=== PATIENT | female | born 1950 | race Caucasian/White ===

== ENCOUNTER 2020-02-20 07:55 | Outpatient (CLI) | payer MEDICARE, OTHER, SELFPAY ==
--- NOTE | ~2020-02-20 | DEXA_ITS ---
Bone Density Report Name: Glenda Miller Age: 69 Sex: Female Ethnicity: White Date of : 1950 Indication: osteopenia; monitoring treatment; height loss; postmenopausal Referring Provider: DAVE CORDOBA Study: Bone densitometry was performed. Exam Date: February 20, 2020 Accession number: [id number] Bone Density: Region BMD T-score Z-score Classification AP Spine (L1, L2, L3) 0.895 -1.1 0.8 Osteopenia Femoral Neck (Left) 0.625 -2.0 -0.3 Osteopenia Total Hip (Left) 0.785 -1.3 0.1 Osteopenia Total Hip Bilateral Avg 0.764 -1.5 -0.1 Osteopenia Femoral Neck (Right) 0.564 -2.6 -0.9 Osteoporosis Total Hip (Right) 0.742 -1.6 -0.2 Osteopenia World Health Organization criteria for BMD impression classify patients as: Normal (T-score at or above -1.0), Osteopenia (T-score between -1.0 and -2.5), or Osteoporosis (T-score at or below -2.5). 10-year Fracture Risk: FRAX not reported because: Some T-score for Spine Total or Hip Total or Femoral Neck at or below -2.5 Treated for osteoporosis Previous Exams: Region Exam Age BMD T-score BMD Change BMD Change Date g/cm2 vs Baseline vs Previous AP Spine(L1, L2, L3) 02/20/2020 69 0.895 -1.1 -0.056(-5.9%)# -0.006(-0.6%) 10/13/2017 66 0.901 -1.1 -0.050(-5.3%)# -0.008(-0.9%) 08/20/2015 64 0.909 -1.0 -0.042(-4.4%)# 0.015(1.6%)# 08/16/2013 62 0.894 -1.1 -0.057(-6.0%)# 0.006(0.6%)# 03/22/2011 60 0.889 -1.2 -0.062(-6.6%)* -0.062(-6.6%)* 01/30/2009 58 0.951 -0.6 Total Hip(Left) 02/20/2020 69 0.785 -1.3 -0.021(-2.6%)# -0.001(-0.1%) 10/13/2017 66 0.785 -1.3 -0.020(-2.5%)# 0.007(0.8%) 08/20/2015 64 0.779 -1.3 -0.027(-3.3%)# -0.024(-3.0%)# 08/16/2013 62 0.803 -1.1 -0.003(-0.3%)# 0.031(4.0%)# 03/22/2011 60 0.772 -1.4 -0.034(-4.2%)* -0.034(-4.2%)* 01/30/2009 58 0.806 -1.1 Total Hip(Right) 02/20/2020 69 0.742 -1.6 -0.034(-4.3%)# -0.019(-2.5%) 10/13/2017 66 0.761 -1.5 -0.014(-1.8%)# 0.031(4.3%)* 08/20/2015 64 0.730 -1.7 -0.046(-5.9%)# -0.047(-6.1%)# 08/16/2013 62 0.777 -1.4 0.001(0.2%)# 0.035(4.7%)# 03/22/2011 60 0.742 -1.6 -0.034(-4.3%)* -0.034(-4.3%)* 01/30/2009 58 0.776 -1.4 *Denotes significance at 95% confidence level, LSC for AP Spine = 0.022 g/cm2, LSC for Total Hip = 0.027 g/cm2 Clinical Information Provided by Patient: Is being treated for osteoporosis Has used the following medications: Fosamax (i.e. alendronate), Reclast (i.e. zoledronate), Vitamin D,
--- NOTE | ~2020-02-20 | MM_ITS ---
EXAMINATION: MM screening [facility] BI w ricky HISTORY: Screening mammogram TECHNIQUE: Craniocaudal and mediolateral oblique 3-D tomosynthesis images were obtained and synthetic 2-D images were generated. CAD analysis was submitted and interpreted. COMPARISON: Comparison to multiple prior studies sequentially, with oldest reviewed study dated 07/24. BREAST PARENCHYMAL COMPOSITION: The breasts are heterogeneously dense, which may obscure small masses . FINDINGS: There is no evidence of suspicious mass, calcification, or architectural distortion to sugg est malignancy in either breast. There has been no suspicious interval change. IMPRESSION: 1. No mammographic evidence of malignancy. 2. Recommend routine screening mammography in one year. 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
== END 2020-02-20 07:56 | disposition home or self-care (01) ==
LOC: ANHIMG 08:01
PROVIDERS: PCP Internal Medicine; Visit Provider Obstetrics & Gynecology Gynecology
DX: Z12.31 Encounter for screening mammogram for malignant neoplasm of breast (principal); Z78.0 Asymptomatic menopausal state; M85.88 Other specified disorders of bone density and structure, other site; M85.852 Other specified disorders of bone density and structure, left thigh; M85.851 Other specified disorders of bone density and structure, right thigh; M81.0 Age-related osteoporosis without current pathological fracture
CPT/HCPCS: 77063; 77067; 77080

== ENCOUNTER 2021-02-25 08:01 | Outpatient (CLI) | payer MEDICARE, OTHER, SELFPAY ==
--- NOTE | ~2021-02-25 | MM_ITS ---
EXAMINATION: MM screening [facility] BI w ricky HISTORY: Screening mammogram TECHNIQUE: Craniocaudal and mediolateral oblique 3-D tomosynthesis images were obtained and synthetic 2-D images were generated. CAD analysis was submitted and interpreted. COMPARISON: 02/20/2020, 05/08/2019, 11/10/2018, 10/25/2018, 10/13/2017 BREAST PARENCHYMAL COMPOSITION: The breasts are heterogeneously dense, which may obscure small masses . FINDINGS: There is no evidence of suspicious mass, calcification, or architectural distortion to sugg est malignancy in either breast. There has been no suspicious interval change. IMPRESSION: 1. No mammographic evidence of malignancy. 2. Recommend routine screening mammography in one year. 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
== END 2021-02-25 08:02 | disposition home or self-care (01) ==
LOC: ANHIMG 08:03
PROVIDERS: PCP Internal Medicine; Visit Provider Obstetrics & Gynecology Gynecology
DX: Z12.31 Encounter for screening mammogram for malignant neoplasm of breast (principal)
CPT/HCPCS: 77063; 77067

== ENCOUNTER 2022-04-22 12:52 | Outpatient (CLI) | payer MEDICARE, SELFPAY | END 2022-04-22 12:53 | disposition home or self-care (01) | LOC: ANHAUDIO 12:55 | PROVIDERS: PCP Internal Medicine; Visit Provider Otolaryngology | DX: H90.3 Sensorineural hearing loss, bilateral (principal) | CPT/HCPCS: 92557; 92567 ==

== ENCOUNTER 2022-06-05 12:30 | Emergency (ER) | payer MEDICARE, SELFPAY ==
--- NOTE | 2022-06-05 12:38 | ED.URI ---
HPI - URI/Sore Throat General Chief Complaint: Upper Respiratory Infection Stated Complaint: sore throat Time Seen by Provider: 06/05/22 12:38 Source: patient and RN notes reviewed History of Present Illness HPI Narrative: Patient is a 71-year-old female who presents the urgent care with complaints of a sore throat that started today and other upper respiratory symptoms of been ongoing for approximately 1 week. Patient has been taking Zyrtec and Sudafed [id number] for symptom relief. Denies of any fevers, nausea, vomiting or fatigue. Patient denies any ill exposures. Patient states that she wants to make sure she does not have COVID or strep before she goes to a democrat this afternoon. Patient does have a history of chronic allergies and states that her symptoms are worse after walking her dog. No other acute complaints. No acute distress noted. Patient aware of the plan of care. Some parts of this dictation were generated by voice recognition software and may contain typographical and/or grammatical inaccuracies. Related Data Home Medications Medication Instructions Recorded Confirmed bimatoprost 0.01 % eye drops 1 drp EACH EYE 03/30/22 03/30/22 (Lumigan) cetirizine 10 mg capsule (All Day 10 mg PO DAILY PRN 03/30/22 03/30/22 Allergy (cetirizine)) escitalopram oxalate 10 mg tablet 10 mg PO 03/30/22 03/30/22 levothyroxine 100 mcg tablet 100 mcg PO 03/30/22 03/30/22 (Synthroid) lisinopril 10 mg tablet 10 mg PO 03/30/22 03/30/22 mirabegron 25 mg tablet,extended ea PO 03/30/22 03/30/22 release 24 hr (Myrbetriq) pravastatin 40 mg tablet 40 mg PO 03/30/22 03/30/22 Allergies Allergy/AdvReac Type Severity Reaction Status Date / Time lincomycin Allergy Intermediate PASSED OUT Verified 03/30/22 13:32 Review of Systems Review of Systems: CONSTITUTIONAL: Denies fever, chills, or sweats. EYES: Denies visual changes, redness, or discharge. ENT: Reports of mild postnasal drainage and sore throat CARDIOVASCULAR: Denies chest pain, palpitations, or edema. RESPIRATORY: Reports a slight cough without dyspnea GASTROINTESTINAL: Denies abdominal pain, nausea, vomiting, or diarrhea. GENITOURINARY: Denies dysuria or hematuria. SKIN: Denies rash or itching. MUSCULOSKELETAL: Denies back pain, joint pain, or myalgia. NEUROLOGIC: Denies headache, numbness, or weakness. All other systems reviewed are negative, except as documented in HPI. [facility] Family History Family History (Updated 03/30/22 @ 13:36 by JOYCE Hidalgo) Father Hypertension Parkinsons Mother Cerebrovascular accident Social History Social History (Updated 03/30/22 @ 13:31 by JOYCE Hidalgo) Smoking status: Never smoker Alcohol intake: current Comments At the time of my signature, I reviewed and agree with the nursing past medical, surgical, social, and family history. There is no relevant family history pertinent to the patient complaint. Exam Narrative: GENERAL: This is a well-nourished, well-developed patient, in no apparent distress. HEAD: normocephalic, atraumatic. EYES: PERRL. Sclera clear/white. Vision is grossly intact. EARS: External ears normal, auditory canals clear and without drainage, TMs normal without perforation. Hearing grossly intact. NOSE: External nose normal with no obvious nasal discharge, nares without redness, clear rhinorrhea. THROAT: Mucous membranes moist, posterior pharynx clear. Moderate postnasal drainage NECK: Neck supple, non-tender without lymphadenopathy, masses or thyromegaly. CARDIOVASCULAR: Regular rate and rhythm without murmurs, gallops, or rubs. RESPIRATORY: Clear to auscultation. Breath sounds equal bilaterally. No wheezes, rales, or rhonchi. SKIN: warm, intact with no suspicious lesions or rash, good texture and turgor. NEURO: awake, alert, and oriented to person, place and time. There were no obvious focal neurologic abnormalities. EXTREMITIES: No clubbing, cyanosis, or edema. Course Cour
[2022-06-05 12:45] VITALS: BP 180/82; PULSE 72; RESP 16; TEMP 37; O2SAT 99
== END 2022-06-05 13:08 | disposition home or self-care (01) ==
PROVIDERS: Emergency Provider Nurse Practitioner Family; PCP Internal Medicine
DX: J30.2 Other seasonal allergic rhinitis (principal); Z20.822 Contact with and (suspected) exposure to COVID-19; E78.00 Pure hypercholesterolemia, unspecified; I10 Essential (primary) hypertension; E03.9 Hypothyroidism, unspecified
CPT/HCPCS: 87081; 87426; 87880; 99213; C9803; G0463

== ENCOUNTER 2022-06-29 17:05 | Outpatient (CLI) | payer MEDICARE, SELFPAY ==
--- NOTE | ~2022-06-29 | MM_ITS ---
EXAMINATION: MM screening jimbo BI w ricky HISTORY: Screening mammogram TECHNIQUE: Craniocaudal and mediolateral oblique 3-D tomosynthesis images were obtained and synthetic 2-D images were generated. CAD analysis was submitted and interpreted. COMPARISON: 02/25/2021, 02/20/2020, bilateral screening mammogram examinations BREAST PARENCHYMAL COMPOSITION: The breasts are heterogeneously dense, which may obscure small masses . FINDINGS: There is no evidence of suspicious mass, calcification, or architectural distortion to sugg est malignancy in either breast. There has been no suspicious interval change. IMPRESSION: 1. No mammographic evidence of malignancy. 2. Recommend routine screening mammography in one year. 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
--- NOTE | ~2022-06-29 | DEXA_ITS ---
Bone Density Report Name: DILAN KING Age: 71 Sex: Female Ethnicity: White Date of : 1950 Indication: postmenopausal; screening for osteoporosis; height loss; Referring Provider: DAVE CORDOBA Study: Bone densitometry was performed. Exam Date: June 29, 2022 Accession number: [id number] Bone Density: Region BMD T-score Z-score Classification AP Spine(L1, L2, L3) 1.015 0.0 2.1 Normal Femoral Neck (Left) 0.669 -1.6 0.2 Osteopenia Total Hip (Left) 0.800 -1.2 0.4 Osteopenia Femoral Neck (Right) 0.587 -2.4 -0.5 Osteopenia Total Hip (Right) 0.720 -1.8 -0.3 Osteopenia Total Hip Mean 0.760 -1.5 0.1 Osteopenia World Health Organization criteria for BMD impression classify patients as: Normal (T-score at or above -1.0), Osteopenia (T-score between -1.0 and -2.5), or Osteoporosis (T-score at or below -2.5). 10-year Fracture Risk: FRAX not reported because: Treated for osteoporosis Clinical Information Provided by Patient: Is being treated for osteoporosis Has used the following medications: Prolia (i.e. denosumab), Vitamin D, Calcium Patient maximum height was 63.75 Menopause Age: 47 Drinks caffeinated beverages Onset of menses at age 14 Number of children 0 Impression: The patient has low bone mass, based on the Right Femoral Neck T-score. Discussion: It is important to ask patients whether they are taking their medications and to encourage continued and appropriate compliance with their osteoporosis therapies to reduce fracture risk. It is also important to review their risk factors and encourage appropriate calcium and vitamin D intakes, exercise, fall prevention and other lifestyle measures. Follow-Up: Consider a repeat BMD and Vertebral Fracture Assessment (VFA) exam in 2 years or sooner if medically necessary, to reassess this patient's status. Reported by: KARLEY on 06/29/2022 5:39:00 PM. Reviewed, dictated and finalized at location AKen DUGAN
== END 2022-06-29 17:06 | disposition home or self-care (01) ==
PROVIDERS: PCP Internal Medicine; Visit Provider Obstetrics & Gynecology Gynecology
DX: Z12.31 Encounter for screening mammogram for malignant neoplasm of breast (principal); M81.0 Age-related osteoporosis without current pathological fracture; Z78.0 Asymptomatic menopausal state; M85.89 Other specified disorders of bone density and structure, multiple sites
CPT/HCPCS: 77063; 77067; 77080

== ENCOUNTER 2022-09-27 18:14 | Emergency (ER) | payer MEDICARE, SELFPAY ==
--- NOTE | ~2022-09-27 | XR_ITS ---
EXAMINATION: XR foot RT min 3V DATE: 09/27/2022 18:44 INDICATION: Right foot slammed in a door one week prior with pain at the third-fifth metacarpophalang eal joints and fifth toe TECHNIQUE: Dorsoplantar, two oblique and lateral views of the right foot were obtained. COMPARISON: None. FINDINGS: 35 degrees hallux valgus with mild to moderate osteoarthritis at the first metatarsophalangeal joint. The second toe crosses over the dorsum of the great toe with hyperextension and mild medial angulati on at the second metacarpophalangeal joint. 1.5 mm dorsal displacement and mild dorsal angulation of an extra articular fracture at the distal neck of the fifth proximal phalanx. No other fractures iden tified. Additional mild osteoarthritis at the second metatarsophalangeal and a few tarsometatarsal an d interphalangeal joints. IMPRESSION: 1. Mild dorsal displacement and angulation of an extra articular fracture at the neck of the right fi fth proximal phalanx. Reviewed, dictated and finalized at location A. [employer]KING IMPRESSION: 1. Mild dorsal displacement and angulation of an extra articular fracture at th e neck of the right fifth proximal phalanx.
[2022-09-27 18:25] VITALS: BP 188/77; PULSE 70; RESP 16; TEMP 37.1; O2SAT 100
--- NOTE | 2022-09-27 18:36 | ED.URI ---
HPI - URI/Sore Throat General Chief Complaint: Upper Respiratory Infection Stated Complaint: sore throat, cough, fatigue Time Seen by Provider: 09/27/22 18:16 Source: patient Mode of arrival: ambulatory Limitations: no limitations History of Present Illness HPI Narrative: Ms. Miller is a 71-year-old female patient presenting to the clinic today with complaints sore throat, cough, fatigue, and right 5th toe pain. She reports her sore throat, cough, and fatigue started 2-3 days ago. States she is having a lot of sinus drainage. Denies any known fever or chills. Has a nonproductive cough. States that she render toe up against a door last Tuesday and is still having some toe pain with some bruising across her foot. Would like to have an x-ray done today in the clinic to check to see if this is broken. Patient is requesting a strep and COVID test in the clinic today as well. MD elicited complaint: sore throat and nasal congestion Related Data Home Medications Medication Instructions Recorded Confirmed bimatoprost 0.01 % eye drops 1 drp EACH EYE DIRECTED 03/30/22 09/27/22 (Lumigan) cetirizine 10 mg capsule (All Day 10 mg PO DAILY 03/30/22 09/27/22 Allergy (cetirizine)) escitalopram oxalate 10 mg tablet 10 mg PO DAILY 03/30/22 09/27/22 levothyroxine 100 mcg tablet 100 mcg PO DAILY 03/30/22 09/27/22 (Synthroid) lisinopril 10 mg tablet 10 mg PO DAILY 03/30/22 09/27/22 mirabegron 25 mg tablet,extended 25 mg PO DAILY 03/30/22 09/27/22 release 24 hr (Myrbetriq) pravastatin 40 mg tablet 40 mg PO DAILY 03/30/22 09/27/22 dorzolamide 2 % eye drops 1 drp ophthalmic (eye) DIRECTED 09/27/22 09/27/22 zolpidem 5 mg tablet 5 mg PO DIRECTED 09/27/22 09/27/22 Allergies Allergy/AdvReac Type Severity Reaction Status Date / Time lincomycin Allergy Intermediate PASSED OUT Verified 09/27/22 18:20 Review of Systems Review of Systems: Pertinent positives per HPI. Patient denies any fever, chills, rash, headache, visual changes, dizziness, cough, shortness of breath, chest pain, palpitations, nausea, vomiting, diarrhea, constipation, abdominal pain, or any urinary issues. [facility] Family History Family History Father Hypertension Parkinsons Mother Cerebrovascular accident Social History Social History Smoking status: Never smoker Alcohol intake: current Occupation/Education: retired Comments At the time of my signature, I reviewed and agree with the nursing past medical, surgical, social, and family history. There is no relevant family history pertinent to the patient complaint. Exam Narrative: General: Well-developed, well nourished, in no apparent distress Head: Normocephalic, atraumatic Eyes: Pupils equally round and reactive to light bilaterally, EOM intact, sclera and conjunctive clear, no discharge, lids normal Ears: TMs intact and clear, ear canals clear, no drainage, grossly hearing normal. Nose: Nares patent, clear nasal discharge, no inflammation, no sinus tenderness. Mouth: Oral pharynx without lesions or masses, good dentition, MMM. Postnasal drip Neck: Supple, trachea midline, no enlargement of anterior or posterior cervical nodes, no thyroid masses or goiter palpable. Cardio: Regular rate and rhythm, s1 and s2 normal, no murmur appreciated. Resp: Clear to auscultation bilaterally, no rhonchi, rales, wheezing or rubs Musculoskeletal: No deformity, old bruising noted to the right proximal 3rd, 4th, and 5th toes, tenderness to palpation over the dorsal foot and 5th proximal toe, grossly normal range of motion, muscle strength strong and equal, peripheral pulse strong, no edema, no cyanosis, normal gait and station Course Course Emergency Course: Portions of this record may have been created with voice recognition software. Level of Care: Express Care Visit Vital Signs
== END 2022-09-27 19:12 | disposition home or self-care (01) ==
PROVIDERS: Emergency Provider Nurse Practitioner Family; PCP Internal Medicine
DX: J06.9 Acute upper respiratory infection, unspecified (principal); J02.9 Acute pharyngitis, unspecified; S92.511A Displaced fracture of proximal phalanx of right lesser toe(s), initial encounter for closed fracture; W22.8XXA Striking against or struck by other objects, initial encounter; Z20.822 Contact with and (suspected) exposure to COVID-19; E78.00 Pure hypercholesterolemia, unspecified; I10 Essential (primary) hypertension; E03.9 Hypothyroidism, unspecified
CPT/HCPCS: 73630; 87081; 87426; 87880; 99213; 99214; C9803; G0463

== ENCOUNTER 2023-10-21 13:37 | Outpatient (CLI) | payer MEDICARE, SELFPAY ==
--- NOTE | ~2023-10-21 | MM_ITS ---
EXAMINATION: MM screening jimbo BI w ricky HISTORY: Screening TECHNIQUE: Craniocaudal and mediolateral oblique 3-D tomosynthesis images were obtained and synthetic 2-D images were generated. CAD analysis was submitted and interpreted. COMPARISON: Comparison to multiple prior studies sequentially, with oldest reviewed study dated 01/2019. BREAST PARENCHYMAL COMPOSITION: There are scattered areas of fibroglandular density. FINDINGS: There is no evidence of suspicious mass, calcification, or architectural distortion to sugg est malignancy in either breast. There has been no suspicious interval change. IMPRESSION: 1. No mammographic evidence of malignancy. 2. Recommend routine screening mammography in one year. 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
== END 2023-10-21 13:38 | disposition home or self-care (01) ==
LOC: ANHIMG 13:41
PROVIDERS: PCP Internal Medicine; Visit Provider Nurse Practitioner
DX: Z12.31 Encounter for screening mammogram for malignant neoplasm of breast (principal)
CPT/HCPCS: 77063; 77067

== ENCOUNTER 2024-03-15 17:34 | Emergency (ER) | payer MEDICARE, SELFPAY ==
[2024-03-15 18:06] VITALS: BP 191/94; PULSE 82; RESP 16; TEMP 36.4; O2SAT 97
[2024-03-15] MEDS: TETANUS,DIPHTHERIA,AC PERTUSSIS ADULT (0.5 ML) BOOSTRIX IM (18:53)
--- NOTE | 2024-03-15 19:06 | ED.BURNSMOKE ---
HPI - Burn/Smoke Inhalation General Chief complaint: Extremity Problem,Nontraumatic Stated complaint: Left Hand Pain Time Seen by Provider: 03/15/24 18:37 Source: patient and RN notes reviewed Mode of arrival: ambulatory Limitations: no limitations History of Present Illness HPI Narrative: Patient presents today complaining of [place]ura to the pads of her left 3rd and 4th fingers that were sustained approximately 2 hours prior to exam on a light bulb on stove anthony when she was changing them. She rinsed under cool water for 5 minutes then applied ice. States symptoms slightly improved. Unsure of the date of her last tetanus vaccine. Related Data Home Medications Medication Instructions Recorded Confirmed bimatoprost 0.01 % eye drops 1 drp EACH EYE DIRECTED 03/30/22 03/15/24 (Lumigan) escitalopram oxalate 10 mg tablet 10 mg PO DAILY 03/30/22 03/15/24 pravastatin 40 mg tablet 40 mg PO DAILY 03/30/22 03/15/24 dorzolamide 2 % eye drops 1 drp ophthalmic (eye) DIRECTED 09/27/22 03/15/24 zolpidem 5 mg tablet 5 mg PO DIRECTED 09/27/22 03/15/24 dextromethorphan-guaifenesin 30 1 tablet PO Q12H 09/29/22 03/15/24 mg-600 mg tablet extended [id number] hr (Mucinex DM) buspirone 5 mg tablet 5 mg PO DAILY 12/20/23 03/15/24 levothyroxine 112 mcg tablet 112 mcg PO DAILY 12/20/23 03/15/24 (Synthroid) lisinopril 20 mg tablet 20 mg PO DAILY 12/20/23 03/15/24 loratadine 10 mg tablet (Claritin) 10 mg PO DAILY 12/20/23 03/15/24 mirabegron 50 mg tablet,extended 50 mg PO DAILY 12/20/23 03/15/24 release 24 hr (Myrbetriq) pantoprazole 20 mg tablet,delayed 20 mg PO QAM 12/20/23 03/15/24 release Allergies Allergy/AdvReac Type Severity Reaction Status Date / Time lincomycin Allergy Intermediate PASSED OUT Verified 03/15/24 18:01 Review of Systems Review of Systems: CONSTITUTIONAL: Denies body aches, fever, chills, or sweats. EYES: Denies visual changes, redness, or discharge. ENT: Denies rhinorrhea, congestion, sore throat, or otalgia. CARDIOVASCULAR: Denies chest pain, palpitations, or edema. RESPIRATORY: Denies cough or dyspnea. GASTROINTESTINAL: Denies abdominal pain, nausea, vomiting, or diarrhea. GENITOURINARY: Denies dysuria or hematuria. SKIN: + for MUSCULOSKELETAL: Denies back pain, joint pain, or myalgia. NEUROLOGIC: Denies headache, numbness, tingling, or weakness. PSYCH: Denies depression or anxiety. 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 Please see nursing chart for further information. There is no relevant family history pertinent to the presenting complaint Exam Narrative: GENERAL: Well-appearing, well-nourished, and in no acute distress. HEAD: Normocephalic, atraumatic. EYES: EOMI. No redness or drainage. Conjunctivae normal. ENT: Mucous membranes pink and moist. NECK: Normal AROM. CHEST: No respiratory distress. EXTREMITIES: Left 3rd and 4th fingers have some sligh
== END 2024-03-15 19:12 | disposition home or self-care (01) ==
PROVIDERS: Emergency Provider Nurse Practitioner; PCP Internal Medicine
DX: T23.232A Burn of second degree of multiple left fingers (nail), not including thumb, initial encounter (principal); X19.XXXA Contact with other heat and hot substances, initial encounter; Z23 Encounter for immunization; M81.0 Age-related osteoporosis without current pathological fracture
CPT/HCPCS: 90471; 90715; 99212; G0463

== ENCOUNTER 2024-04-15 16:00 | Emergency (ER) | payer MEDICARE, SELFPAY ==
--- NOTE | 2024-04-15 16:10 | ED.GENADULT ---
HPI - General Adult General Chief complaint: Upper Respiratory Infection Stated complaint: sore throat Time Seen by Provider: 04/15/24 16:20 Source: patient Mode of arrival: ambulatory Limitations: no limitations History of Present Illness HPI narrative: 73-year-old female patient presents to the [facility] with complaints of sinus symptoms and sore throat for the last 3-4 days. Patient states she has had congestion, drainage, runny nose and a sore throat. Patient states her sore throat has been off and on. Denies any fevers, body aches or chills. Patient states she has been taking normal [id number] Claritin for her symptoms. Related Data Home Medications Medication Instructions Recorded Confirmed bimatoprost 0.01 % eye drops 1 drp EACH EYE DIRECTED 03/30/22 04/15/24 (Lumigan) escitalopram oxalate 10 mg tablet 10 mg PO DAILY 03/30/22 04/15/24 pravastatin 40 mg tablet 40 mg PO DAILY 03/30/22 04/15/24 dorzolamide 2 % eye drops 1 drp ophthalmic (eye) DIRECTED 09/27/22 04/15/24 zolpidem 5 mg tablet 5 mg PO DIRECTED 09/27/22 04/15/24 buspirone 5 mg tablet 5 mg PO DAILY 12/20/23 04/15/24 levothyroxine 112 mcg tablet 112 mcg PO DAILY 12/20/23 04/15/24 (Synthroid) lisinopril 20 mg tablet 20 mg PO DAILY 12/20/23 04/15/24 loratadine 10 mg tablet (Claritin) 10 mg PO DAILY 12/20/23 04/15/24 mirabegron 50 mg tablet,extended 50 mg PO DAILY 12/20/23 04/15/24 release 24 hr (Myrbetriq) pantoprazole 20 mg tablet,delayed 20 mg PO QAM 12/20/23 04/15/24 release Allergies Allergy/AdvReac Type Severity Reaction Status Date / Time lincomycin Allergy Intermediate PASSED OUT Verified 04/15/24 16:13 Review of Systems Review of Systems: CONSTITUTIONAL: Denies fever, chills, or sweats. EYES: Denies visual changes, redness, or discharge. ENT: Positive rhinorrhea, congestion, sore throat, denies otalgia. CARDIOVASCULAR: Denies chest pain, palpitations, or edema. RESPIRATORY: Denies cough or dyspnea. GASTROINTESTINAL: Denies abdominal pain, nausea, vomiting, or diarrhea. GENITOURINARY: Denies dysuria or hematuria. SKIN: Denies rash or itching. MUSCULOSKELETAL: Denies back pain, joint pain, or myalgia. NEUROLOGIC: Denies headache, numbness, or weakness. PSYCHIATRIC: Denies anxiety or depression. 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 There is no relevant family history pertinent to the presenting complaint. Exam Narrative: GENERAL: Well-appearing, well-nourished, and in no acute distress. HEAD: Normocephalic, atraumatic. EYES: PERRLA and EOMI. ENT: Nares with erythema edema noted bilaterally, no rhinorrhea or epistaxis. Mucous membranes moist. posterior pharynx with no erythema, tonsillar enlargement, exudates or lesions. bilateral TMs are clear no erythema or foreign bodies the canal NECK: Supple. No lymphadenopathy CHEST: Clear to auscultation. No respiratory distress. HEART: Regular rate and rhythm. No murmur heard. Normal pe
[2024-04-15 16:17] VITALS: BP 189/83; PULSE 69; RESP 16; TEMP 36.9; O2SAT 99
[2024-04-15 16:45] LABS: EDSTREPNEGPOS1 Negative
== END 2024-04-15 17:02 | disposition home or self-care (01) ==
PROVIDERS: Emergency Provider Nurse Practitioner Family; PCP Internal Medicine
DX: J06.9 Acute upper respiratory infection, unspecified (principal); M81.0 Age-related osteoporosis without current pathological fracture; F41.9 Anxiety disorder, unspecified; E07.9 Disorder of thyroid, unspecified
CPT/HCPCS: 87081; 87426; 87880; 99213; G0463

== ENCOUNTER 2024-09-25 18:45 | Emergency (ER) | payer MEDICARE, SELFPAY ==
[2024-09-25 18:54] VITALS: BP 162/69; PULSE 73; RESP 16; TEMP 37.2; O2SAT 98
--- NOTE | 2024-09-25 19:03 | ED.URI ---
HPI - URI/Sore Throat General Chief Complaint: Upper Respiratory Infection Stated Complaint: BODY ACHES/COUGH/SORE THROAT/HEADACHE Time Seen by Provider: 09/25/24 18:55 Source: patient Mode of arrival: ambulatory Limitations: no limitations History of Present Illness HPI Narrative: Glenda is a 73-year-old female patient presenting to the clinic today with complaints of body aches, cough, sore throat, and headache x1 day. She reports her symptoms started last night. No fever or chills. Does take care of immunocompromised . MD elicited complaint: cough, sore throat, nasal congestion and other (Body aches, headache) Related Data Home Medications ?Medication ?Instructions ?Recorded ?Confirmed ?Last Taken ?Type bimatoprost 0.01 % eye drops 1 drp EACH EYE DIRECTED 03/30/22 09/25/24 Unknown History (Lumigan) escitalopram oxalate 10 mg tablet 10 mg PO DAILY 03/30/22 09/25/24 Unknown History pravastatin 40 mg tablet 40 mg PO DAILY 03/30/22 09/25/24 Unknown History dorzolamide 2 % eye drops 1 drp ophthalmic (eye) DIRECTED 09/27/22 09/25/24 Unknown History zolpidem 5 mg tablet 5 mg PO DIRECTED 09/27/22 09/25/24 Unknown History buspirone 5 mg tablet 5 mg PO DAILY 12/20/23 09/25/24 Unknown History levothyroxine 112 mcg tablet 112 mcg PO DAILY 12/20/23 09/25/24 Unknown History (Synthroid) lisinopril 20 mg tablet 20 mg PO DAILY 12/20/23 09/25/24 Unknown History loratadine 10 mg tablet (Claritin) 10 mg PO DAILY 12/20/23 09/25/24 Unknown History mirabegron 50 mg tablet,extended 50 mg PO DAILY 12/20/23 09/25/24 Unknown History release 24 hr (Myrbetriq) pantoprazole 20 mg tablet,delayed 20 mg PO QAM 12/20/23 09/25/24 Unknown History release Allergies Allergy/AdvReac Type Severity Reaction Status Date / Time lincomycin Allergy Intermediate PASSED OUT Verified 09/25/24 18:51 Review of Systems Review of Systems: Pertinent positives per HPI. Patient denies any fever, chills, rash, headache, visual changes, dizziness, cough, shortness of breath, chest pain, palpitations, nausea, vomiting, diarrhea, constipation, abdominal pain, or any urinary issues. 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 There is no relevant family history pertinent to the patient complaint. Exam Narrative: General: Well-developed, well nourished, in no apparent distress Head: Normocephalic, atraumatic Eyes: Pupils equally round and reactive to light bilaterally, EOM intact, sclera and conjunctive clear, no discharge, lids normal Ears: TMs intact and congested, ear canals clear, no drainage, grossly hearing normal. Nose: Nares patent, clear nasal discharge, no inflammation, no sinus tenderness. Mouth: Oral pharynx red without lesions or masses, good dentition, MMM. Postnasal drip Neck: Supple, trachea midline, no enlargement of anterior or posterior cervical nodes, no thyroid masses or goiter palpable. Cardio: Regular rate and rhythm, s1 and s2 normal, no murmur appreciated. Resp: Clear to auscultation bilaterally, no rhonchi, rales, wheezing or rubs Course Course Emergency Course: Portions of this record may have been created with voice recognition software. Level of Care: Express Care Visit Vital Signs Vital signs: Vital Signs Temperature 37.2 C 09/25/24 18:54 Pulse Rate 73 09/25/24 18:54 Respiratory Rate 16 09/25/24 18:54 Blood Pressure 162/69 H 09/25/24 18:54 Pulse Oximetry 98 09/25/24 18:54 Oxygen Delivery Room Air 09/25/24 18:54 Temperature 37.2 C 09/25/24 18:54 Pulse Rate 73 09/25/24 18:54 Respiratory Rate 16 09/25/24 18:54 Blood Pressure 162/69 H 09/25/24 18:54 Pulse Oximetry 98 09/25/24 18:54 Oxygen Delivery Room Air 09/25/24 18:54 Vital signs reviewed MDM - URI/Sore Throat MDM Narrative Medical decision making narrative: At the time of visit patient is resting comfortably on the exam table. Patient appears to be nontoxic. Labs: COVID, influenza, and strep test were all performed. All testing was negative except for the COVID test. COVID testing was positive. We will send strep for culture. Plan: Patient has COVID-19. Supportive measures were discussed with the patient and they voiced understanding discharge instructions and agrees to treatment plan. Return precautions reviewed Differential Diagnosis Differential diagnosis: Likely upper respiratory infection, otitis media, sinusitis, viral infection, bronchitis, influenza, pharyngitis and other (COVID) Lab Data Labs: Lab Results 09/25/24 Range/Units 19:09 POC Influenza A Ag Negative (Negative) POC Influenza B Ag Negative (Negative) POC SARS CoV-2 Ag Positive (Negative) POC Grp A Strep Screen Negative (Negative) Discharge Plan Discharge Clinical Impression: COVID-19 Patient Disposition: Home, Self-Care Condition: Stable Instructions: Antibiotic Form, How to Recover from COVID-19 at Home (ED) Additional Instructions: COVID testing was positive in the clinic today. Influenza testing and strep testing were negative. We will send strep for culture if this comes back positive we will contact you in place you on antibiotics at that time May contact your doctor tomorrow to discuss use of Paxlovid for Covid. May take Coricidin HBP for cold/flu symptoms May take Mucinex as needed for the cough Increase fluids and stay well hydrated Tylenol/motrin for pain/fever Flonase and OTC antihistamines as directed Vicks vapor rub to open sinuses Sinus rinses for congestion Cepacol spray, cough drops, throat lozenges, warm tea with honey/lemon, gargle salt water to soothe throat BRAT diet for diarrhea Clear liquids x 24 hours then advance as tolerated for nausea/vomiting Go to the ED if you develop a worsening in your condition- high fever not controlled by Tylenol or Motrin, dehydration, weakness, lethargy, shortness of breath, or chest pain. Follow up with your PCP in 3-5 days if symptoms persist. Patient Language: Kinyarwanda Prescriptions: No Action zolpidem 5 mg tablet 5 mg PO DIRECTED dorzolamide 2 % drops 1 drp ophthalmic (eye) DIRECTED buspirone 5 mg Tablet 5 mg PO DAILY lisinopril 20 mg Tablet 20 mg PO DAILY pantoprazole 20 mg Tablet,Delayed Release (Dr/Ec) 20 mg PO QAM loratadine [Claritin] 10 mg Tablet 10 mg PO DAILY levothyroxine [Synthroid] 112 mcg tablet 112 mcg PO DAILY mirabegron [Myrbetriq] 50 mg Tablet Extended Release 24 Hr 50 mg PO DAILY escitalopram oxalate 10 mg tablet 10 mg PO DAILY Lumigan 0.01 % drops 1 drp EACH EYE DIRECTED pravastatin 40 mg tablet 40 mg PO DAILY Follow-up/Referrals: Anthony,Zack Lewis MD [Primary Care Provider] - Time of Disposition: 19:20 Quality NIHSS Nursing Documentation ED NIHSS nursing documentation: reviewed/agree
[2024-09-25 19:11] LABS: EDCOVIDSCREEN Positive (Negative); EDINFLUASCREEN Negative (Negative); EDINFLUBSCREEN Negative (Negative); EDSTREPNEGPOS1 Negative (Negative)
== END 2024-09-25 19:24 | disposition home or self-care (01) ==
PROVIDERS: Emergency Provider Nurse Practitioner Family; PCP Internal Medicine
DX: U07.1 COVID-19 (principal); M81.0 Age-related osteoporosis without current pathological fracture
CPT/HCPCS: 87081; 87426; 87804; 87880; 99213; G0463

== ENCOUNTER 2024-11-14 10:55 | Outpatient (CLI) | payer MEDICARE, SELFPAY ==
--- NOTE | ~2024-11-14 | DEXA_ITS ---
Bone Density Report Name: DILAN KING Age: 73 Sex: Female Ethnicity: White Date of : 1950 Indication: osteopenia; monitoring treatment; height loss; Referring Provider: IAN, CHARU Study: Bone densitometry was performed. Exam Date: November 14, 2024 Accession number: [id number] Bone Density: Region BMD T-score Z-score Classification AP Spine(L1, L2, L3) 0.968 -0.5 1.8 Normal Femoral Neck (Left) 0.655 -1.7 0.2 Osteopenia Total Hip (Left) 0.794 -1.2 0.5 Osteopenia Femoral Neck (Right) 0.603 -2.2 -0.3 Osteopenia Total Hip (Right) 0.741 -1.6 0.0 Osteopenia Total Hip Mean 0.768 -1.4 0.3 Osteopenia World Health Organization criteria for BMD impression classify patients as: Normal (T-score at or above -1.0), Osteopenia (T-score between -1.0 and -2.5), or Osteoporosis (T-score at or below -2.5). 10-year Fracture Risk: FRAX not reported because: Treated for osteoporosis Previous Exams: Region Exam Age BMD T-score BMD Change BMD Change Date g/cm2 vs Baseline vs Previous AP Spine (L1-L3) 11/14/2024 73 0.968 -0.5 0.074 (8.2%)# -0.047 (-4.7%) 06/29/2022 71 1.015 0.0 0.121 (13.5%)# 0.120 (13.4%)* 02/20/2020 69 0.895 -1.1 0.001 (0.1%)# -0.006 (-0.6%) 10/13/2017 66 0.901 -1.1 0.007 (0.8%)# -0.008 (-0.9%) 08/20/2015 64 0.909 -1.0 0.015 (1.6%)# 0.015 (1.6%)# 08/16/2013 62 0.894 -1.1 Total Hip(Left) 11/14/2024 73 0.794 -1.2 -0.009 (-1.1%) -0.006 (-0.7%) 06/29/2022 71 0.800 -1.2 -0.003 (-0.3%) 0.016 (2.0%) 02/20/2020 69 0.785 -1.3 -0.018 (-2.3%) -0.001 (-0.1%) 10/13/2017 66 0.785 -1.3 -0.018 (-2.2%) 0.007 (0.8%) 08/20/2015 64 0.779 -1.3 -0.024 (-3.0%) -0.024 (-3.0%) 08/16/2013 62 0.803 -1.1 Total Hip(Right) 11/14/2024 73 0.741 -1.6 -0.035 (-4.6%) 0.021 (3.0%) 06/29/2022 71 0.720 -1.8 -0.057 (-7.3%) -0.022 (-3.0%) 02/20/2020 69 0.742 -1.6 -0.035 (-4.5%) -0.019 (-2.5%) 10/13/2017 66 0.761 -1.5 -0.016 (-2.0%) 0.031 (4.3%)* 08/20/2015 64 0.730 -1.7 -0.047 (-6.1%) -0.047 (-6.1%) 08/16/2013 62 0.777 -1.4 *Denotes significance at 95% confidence level, LSC for AP Spine = 0.022 g/cm2, LSC for Total Hip = 0.027 g/cm2 # Denotes dissimilar scan types or analysis methods Clinical Information Provided by Patient: Is being treated for osteoporosis Has used the following medications: Fosamax (i.e. alendronate), Reclast (i.e. zoledronate), Prolia (i.e. denosumab), Vitamin D, Calcium Patient maximum height was 64.0 Menopause Age: 47 No regular weight bearing exercise Drinks caffeinated beverages Onset of menses at age 15 Number of children 0 Impression: The patient has low bone mass, based on the Right Femoral Neck T-score. The BMD for the AP Spine (L1-L3) decreased, changing by -4.7% since the last DXA exam. Discussion: SIGNIFICANT BONE LOSS OBSERVED. Adherence to therapy (including calcium and vitamin D intake) should be assessed. If compliance is not a factor, review management and exclusion of secondary causes of bone loss. It is important to ask patients whether they are taking their medications and to encourage continued and appropriate compliance with their osteoporosis therapies to reduce fracture risk. It is also important to review their risk factors and encourage appropriate calcium and vitamin D intakes, exercise, fall prevention and other lifestyle measures. Follow-Up: Consider a repeat BMD and Vertebral Fracture Assessment (VFA) exam in 2 years or sooner if medically necessary, to reassess this patient's status. Reported by: GAYE on 11/14/2024 11:32:00 AM. Reviewed, dictated and finalized at location AKen DUGAN
--- OUTSIDE RECORDS SUMMARY | 2024-11-14 12:36 | XMS_ITS | Data Portability ---
Author Organization [facility] [employer], Main Office Address [address] [place] [address] Assessment No assessment recorded. Plan of Treatment Reminders Order Date Submit Date Provider Last Modified By Organization Details Last Modified Time Details Appointments None recorded. Lab vitamin D, 25-hydroxy, total, serum 2023 024 [email or web address] [facility], [address], [address], [place], [address], 4 10:06:46 CBC w/ auto diff 2023 024 [id number] [facility], [address], [place], [address], 4 10:06:46 CMP, serum or plasma 2023 024 [id number] [facility], [address], [address], [place], [address], 4 10:06:46 lipid panel, serum 2023 024 [email or web address] [facility], [address], [place], [address], 4 10:06:46 T4, free, serum 2023 024 [email or web address] [facility] [address], [place], [address], 4 10:06:46 TSH, serum or plasma 2023 024 [email or web address] [facility] [address] [address], [place], [address], 4 10:06:46 vitamin D, 25-hydroxy, total, serum 2022 023 [id number] [facility], [address], [address], [place], [address], 3 17:44:06 CMP, serum or plasma 2022 023 [id number] [facility], [address], [address], [place], [address], 3 17:44:05 CMP, serum or plasma 2022 023 [id number] [facility], [address], [address], [place], [address], 3 17:44:05 CBC w/ auto diff 2022 023 [id number] [facility], [address], [address], [place], [address], 3 17:44:05 TSH, serum or plasma 2022 023 [id number] [facility], [address], [address], [place], [address], 3 17:44:05 T4, free, serum 2022 023 [facility], [address], [address], [place], [address], 3 17:44:06 Referral None recorded. Procedures None recorded. Surgeries None recorded. Imaging None recorded. Medication Orders pantoprazol e 40 mg tablet,zuri yed release 2023 024 [facility] #[id number], [address] [place], [address], 15:40:20 Patient TargetsNo targets recorded. Patient Instructions Encounter Date Encounter Id Patient Instructions Last Modified By Organization Details Last Modified Time 02/25/2023 [id number] Follow-up hypertension -hyperlipidemia-hyp othyroidism -osteoporosis all clinically stable. Check blood work in the form of CBC, CMP, lipid, thyroid and vitamin-D level. Continue on current Rx follow-up in six months [email or web address] Not available 02/25/2023 15:28:41 08/26/2023 [id number] Follow-up hypertension -hyperlipidemia-hyp othyroidism -overactive bladder -osteoporosis -obesity all clinically stable. Has had recent blood work which looked fine. Will continue on current Rx follow-up in six months.. Standard immunizations of RSV, COVID, influenza and shingles as recommended. Portions of the record may have been created with voice recognition software. Occasional wrong-word or sxcvv-[id number] substitutions may have occurred due to the inherent limitations of voice recognition software. Read the chart carefully and recognize, using context, where substitutions have occurred. Not available 08/26/2023 14:49:09 10/25/2023 [id number] dementia rating scale-2* [email or web address] Not available 10/25/2023 15:40:52 alcohol misuse* [email or web address] Not available 10/25/2023 15:40:52 depression screening* [email or web address] Not available 10/25/2023 15:40:52 multi-dimensiona l health assessment questionnaire* [email or web address] Not available 10/25/2023 15:40:52 [facility]ized [facility] Plan and Screening Recommendations Advance Directives - Do you have one? No Advance Directives - Do we have your advance directive on file in your health record? Primary Prevention/Interven tion (prevents or decreases the chance of common diseases from occurring) Smoking Risk: Non Smoker Alcohol Misuse Screening: Negative Weight: Appropriate Overwei ght continue your current weight loss efforts try to lose 5% of your body weight try to lose 10% of your body weight Physical activity: Need more exercise/physical activity Nutrition: Good Average Fall Risk (screened today): Low Vaccines Pneumococcal: Ordered Recommended today Recommended today, but you have declined No further needed Influenza: Your next one in the fall of this year Chronic Disease Risks Stroke: Low Risk Intermediate Risk I have no recommendations Act kyle diagnosis, Continue current treatment plan Heart Attack: Low risk Intermediate Risk I have no recommendations Act kyle diagnosis, Continue current treatment plan Clogging of the Arteries: Low risk Intermediate Risk I have no recommendations Act kyle diagnosis, Continue current treatment plan Diabetes: Low Risk I have no recommendations Secondary Prevention/Interven tion (detects treatable diseases before they may cause symptoms, disability, or ) Breast Cancer Screening with mammogram: Cervical/Uterine/Ov rosalinda Cancer Screening: No screening necessary Osteoporosis Screening: Date Screening Last Performed: Colon Cancer Screening: Colonoscopy Date Screening Last Performed: __2016___ Eye Disease Screening: Dementia Risk: Low I have no recommendations Depression Screening: Negative [email or web address] Not available 10/25/2023 15:15:55 Medicare wellnes s evaluation risk assessment. Follow-up hypertension, hyperlipidemia and sciatica or piriformis syndrome both all clinically stable. Will obtain radiographic studies of the lumbar and sacral spine along with the hip in pelvis continue on current Rx set up physical therapy. Check blood work consisting of CBC, CMP, lipid vitamin-D level. Continue on current Rx follow-up in six months Portions of the record may have been created with voice recognition software. Occasional wrong-word or [id number]-y-[id number] substitutions may have occurred due to the inherent limitations of voice recognition software. Read the chart carefully and recognize, using context, where substitutions have occurred. x-rays of lumbar sacral spine X-rays of the right hip and pelvis Set up with physical therapy for lower back pain the right leg Keep Appt: Tue 01:30 PM Jorge [email or web address] Not available 10/25/2023 15:40:26 12/16/2023 [id number] Atypical chest p ain probably noncardiac and likely GERD. Follow-up hypertension, hyperlipidemia and hypothyroidism all clinically stable. Will place on some pantoprazole 40 mg once daily recheck back in several weeks. Continue on current Rx otherwise instructed let us know if any recurrent attacks and may require further evaluation from a cardiac standpoint if it persists Keep Appointment: Tue 01:30 PM Jorge Portions of the record may have been created with voice recognition software. Occasional wrong-word or iehxj-l-[id number] substitutions may have occurred due to the inherent limitations of voice recognition software. Read the chart carefully and recognize, using context, where substitutions have occurred. [email or web address] Not available 12/16/2023 15:40:05 03/01/2024 [id number] Follow-up hypertension, hyperlipidemia, hypothyroidism, osteoporosis and obesity class one all clinically stable. Will continue on current Rx. Does not need any blood work performed at this time. Will continue on current medications and follow-up in six months. Next Appointment: 6 Months Approximate Date: 08/28/2024 Portions of the record may have been created with voice recognition software. Occasional wrong-word or icrxk-y-asnt substitutions may have occurred due to the inherent limitations of voice recognition software. Read the chart carefully and recognize, using context, where substitutions have occurred. [email or web address] Not available 03/01/2024 15:42:43 Reason for Referral None Reported. Results Created Date Observation Date Name Description Value Unit Range Abnormal Flag Note LastModifiedBy Organization Detail LastModifiedTime 06/14/2006/15/2023 SPECI MEN INTEG RITY COMPR OMISE D specimen integrity compromised Whole blood , unspu n or parti ally spun gel barri er tube was recei wilbert more than [address] . A false eleva tion of K, Phos and LD as well as a false decre ase in gluco se may occur due to prolo nged conta ct with red cells . Not Available [facility] [address] [place], [address], 06/15/2023 09:49:27 06/14/2006/15/2023 SPECI MEN INTEG RITY COMPR OMISE D copy(ies) sent to: TERESA HERNÁNDEZ JR [address] [phone] Not Available [facility] [address] [place], [address], 06/15/2023 09:49:27 06/14/2006/15/2023 COMPR EHENS KYLE METAB OLIC PANEL glucose 92 mg/dL 65-99 normal Fasti ng refer ence inter natalia Not Available [facility] [address] [place], [address], 06/15/2023 09:49:28 06/14/20 23 06/15/2023 COMPR EHENS KYLE METAB OLIC PANEL urea nitrogen (BUN) 18 mg/dL 7-25 normal Not Available [address], [address], 06/15/2023 09:49:28 06/14/2006/15/2023 COMPR EHENS KYLE METAB OLIC PANEL creatinine 0.74 mg/dL 0.60-1 .00 normal Not Available [address], [address], 06/15/2023 09:49:28 06/14/2006/15/2023 COMPR EHENS KYLE METAB OLIC PANEL eGFR 86 mL/mi n/1.7 3m2 > or = 60 normal Not Available [address], [address], 06/15/2023 09:49:28 06/14/2006/15/2023 COMPR EHENS KYLE METAB OLIC PANEL BUN/creatini ne ratio SEE NOTE: (calc ) 6-22 Not Repor bari: BUN and Creat inine are withi n refer ence range . Not Available [address], [address], 06/15/2023 09:49:28 06/14/2006/15/2023 COMPR EHENS KYLE METAB OLIC PANEL sodium 136 mmol/ L 135-14 6 normal Not Available [address] [place], [address], 06/15/2023 09:49:28 06/14/2006/15/2023 COMPR EHENS KLYE METAB OLIC PANEL potassium 4.2 mmol/ L 3.5-5. 3 normal Not Available [address], [address], 06/15/2023 09:49:28 06/14/2006/15/2023 COMPR EHENS KYLE METAB OLIC PANEL chloride 100 mmol/ L 98-110 normal Not Available [address], [address], 06/15/2023 09:49:28 06/14/2006/15/2023 COMPR EHENS KYLE METAB OLIC PANEL carbon dioxide 30 mmol/ L 20-32 normal Not Available [address], [address], 06/15/2023 09:49:28 06/14/2006/15/2023 COMPR EHENS KYLE METAB OLIC PANEL calcium 8.8 mg/dL 8.6-10 .4 normal Not Available [address], [address], 06/15/2023 09:49:28 06/14/2006/15/2023 COMPR EHENS KYLE METAB OLIC PANEL protein, total 6.1 g/dL 6.1-8. 1 normal Not Available [address], [address], 06/15/2023 09:49:28 06/14/20 23 06/15/2023 COMPR EHENS KYLE METAB OLIC PANEL albumin 3.9 g/dL 3.6-5. 1 normal Not Available [address], [address], 06/15/2023 09:49:28 06/14/2006/15/2023 COMPR EHENS KYLE METAB OLIC PANEL globulin 2.2 g/dL_ (calc ) 1.9-3. 7 normal Not Available [address], [address], 06/15/2023 09:49:28 06/14/20 23 06/15/2023 COMPR EHENS KYLE METAB OLIC PANEL albumin/glob ulin ratio 1.8 (calc ) 1.0-2. 5 normal Not Available [address], [address], 06/15/2023 09:49:28 06/14/2006/15/2023 COMPR EHENS KYLE METAB OLIC PANEL bilirubin, total 0.5 mg/dL 0.2-1. 2 normal Not Available [address], [address], 06/15/2023 09:49:28 06/14/2006/15/2023 COMPR EHENS KYLE METAB OLIC PANEL alkaline phosphatase 58 U/L 37-153 normal Not Available [facility] [address], [address], 06/15/2023 09:49:28 06/14/2006/15/2023 COMPR EHENS KYLE METAB OLIC PANEL AST 18 U/L 10-35 normal Not Available [address], [address], 06/15/2023 09:49:28 06/14/2006/15/2023 COMPR EHENS KYLE METAB OLIC PANEL ALT 16 U/L 6-29 normal Not Available [address], [address], 06/15/2023 09:49:28 06/14/2006/15/2023 COMPR EHENS KYLE METAB OLIC PANEL copy(ies) sent to: GIL MINER, TERESA MULLINS JR [address] [phone] Not Available [address], [address], 06/15/2023 09:49:28 06/14/2006/15/2023 CBC (INCL UDES DIFF/ PLT) white blood cell count 5.8 thous and/u L 3.8-10 .8 normal Not Available [address], [address], 06/15/2023 09:49:29 06/14/2006/15/2023 CBC (INCL UDES DIFF/ PLT) red blood cell count 4.25 sam on/uL 3.80-5 .10 normal Not Available [address], [address], 06/15/2023 09:49:29 06/14/2006/15/2023 CBC (INCL UDES DIFF/ PLT) hemoglobin 13.2 g/dL 11.7-1 5.5 normal Not Available [address], [address], 06/15/2023 09:49:29 06/14/2006/15/2023 CBC (INCL UDES DIFF/ PLT) hematocrit 39.2 % 35.0-4 5.0 normal Not Available [address], [address], 06/15/2023 09:49:29 06/14/2006/15/2023 CBC (INCL UDES DIFF/ PLT) MCV 92.2 fL 80.0-1 00.0 normal Not Available [address], [address], 06/15/2023 09:49:29 06/14/2006/15/2023 CBC (INCL UDES DIFF/ PLT) MCH 31.1 pg 27.0-3 3.0 normal Not Available [address], [address], 06/15/2023 09:49:29 06/14/2006/15/2023 CBC (INCL UDES DIFF/ PLT) MCHC 33.7 g/dL 32.0-3 6.0 normal Not Available [address], [address], 06/15/2023 09:49:29 06/14/2006/15/2023 CBC (INCL UDES DIFF/ PLT) RDW 12.4 % 11.0-1 5.0 normal Not Available [address], [address], 06/15/2023 09:49:29 06/14/2006/15/2023 CBC (INCL UDES DIFF/ PLT) platelet count 275 thous and/u L 140-40 0 normal Not Available [address], [address], 06/15/2023 09:49:29 06/14/2006/15/2023 CBC (INCL UDES DIFF/ PLT) MPV 11.3 fL 7.5-12 .5 normal Not Available [address], [address], 06/15/2023 09:49:29 06/14/2006/15/2023 CBC (INCL UDES DIFF/ PLT) absolute neutrophils 3608 cells /uL 1500-7 800 normal Not Available [address], [address], 06/15/2023 09:49:29 06/14/2006/15/2023 CBC (INCL UDES DIFF/ PLT) absolute lymphocytes 1288 cells /uL 850-39 00 normal Not Available [address], [address], 06/15/2023 09:49:29 06/14/2006/15/2023 CBC (INCL UDES DIFF/ PLT) absolute monocytes 389 cells /uL 200-95 0 normal Not Available [address], [address], 06/15/2023 09:49:29 06/14/2006/15/2023 CBC (INCL UDES DIFF/ PLT) absolute eosinophils 429 cells /uL 15-500 normal Not Available [address], [address], 06/15/2023 09:49:29 06/14/2006/15/2023 CBC (INCL UDES DIFF/ PLT) absolute basophils 87 cells /uL 0-200 normal Not Available [address], [address], 06/15/2023 09:49:29 06/14/2006/15/2023 CBC (INCL UDES DIFF/ PLT) neutrophils 62.2 % normal Not Available [address], [address], 06/15/2023 09:49:29 06/14/2006/15/2023 CBC (INCL UDES DIFF/ PLT) lymphocytes 22.2 % normal Not Available [address], [address], 06/15/2023 09:49:29 06/14/2006/15/2023 CBC (INCL UDES DIFF/ PLT) monocytes 6.7 % normal Not Available [address], [address], 06/15/2023 09:49:29 06/14/2006/15/2023 CBC (INCL UDES DIFF/ PLT) eosinophils 7.4 % normal Not Available [address], [address], 06/15/2023 09:49:29 06/14/2006/15/2023 CBC (INCL UDES DIFF/ PLT) basophils 1.5 % normal Not Available [address], [address], 06/15/2023 09:49:29 06/14/2006/15/2023 CBC (INCL UDES DIFF/ PLT) copy(ies) sent to: TERESA HERNÁNDEZ JR [address] [phone] Not Available [address], [place], [address], 06/15/2023 09:49:29 06/14/2006/15/2023 T4, FREE T4, free 1.1 NG/dL 0.8-1. 8 normal Not Available [address] [place], [address], 06/15/2023 09:49:31 06/14/2006/15/2023 T4, FREE copy(ies) sent to: TERESA HERNÁNDEZ JR [address] [place] [address] Not Available [address], [address], 06/15/2023 09:49:31 06/14/2006/15/2023 TSH TSH 3.45 mIU/L 0.40-4 .50 normal Not Available [address] [place], [address], 06/15/2023 09:49:32 06/14/2006/15/2023 TSH copy(ies) sent to: TERESA HERNÁNDEZ JR [address] [place] [address] Not Available [address], [address], 06/15/2023 09:49:32 06/14/2006/15/2023 VITAM IN D,25- OH,TO KEYLA,I A vitamin D,25-oh,tota l,ia 42 NG/mL 30-100 normal Vitam in D Statu s 25-OH Vitam in D: Defic iency : <20 ng/mL Insuf ficie ncy: 20 - 29 ng/mL Optim al: > or = 30 ng/mL For 25-OH Vitam in D testi ng on patie nts on D2-leon pplem entat ion and patie nts for whom quant itati on of D2 and D3 fract ions is requi red, the [employer] Assur eD(TM ) 25-OH VIT D, (D2,D 3), LC/MS /MS is recom erlin d: order code 69367 (ori ents >2yrs ). See Note 1 Note 1 For addit ional infor clif fam refer to http: //stuart Florian gnost ics.c om/fa q/FAQ 199 (This link is being provi ded for infor kip garrett/ francisco bolaños purpo ses only. ) Not Available [address], [address], 06/15/2023 09:49:33 06/14/20 23 06/15/2023 VITAM IN D,25- OH,TO Alexx RAMIRES A copy(ies) sent to: GIL MINER, TERESA MULLINS JR [address] [phone] Not Available [address], [address], 06/15/2023 09:49:33 11/07/19 24 11/11/2023 LIPID PANEL , STAND OFELIA cholesterol, total 155 mg/dL <200 normal Not Available [address], [address], 11/11/2023 01:45:20 11/07/19 24 11/11/2023 LIPID PANEL , STAND OFELIA HDL cholesterol 58 mg/dL > or = 50 normal Not Available [address], [address], 11/11/2023 01:45:20 11/07/19 24 11/11/2023 LIPID PANEL , STAND OFELIA triglyceride s 53 mg/dL <150 normal Not Available [address], [address], 11/11/2023 01:45:20 11/07/19 24 11/11/2023 LIPID PANEL , STAND OFELIA LDL-choleste rol 84 mg/dL _(marion c) normal Refer ence range : <100 Justin able range <100 mg/dL for prima ry preve ntion ; <70 mg/dL for patie nts with CHD or diabe tic patie nts with > or = 2 CHD risk facto rs. LDL-C is now calcu lated using the Yomaira n-Hop kins calcu aki n, which is a valid ated novel metho d harpali yashira rima r accur acy than the Fried rohit equat ion in the estim ation of LDL-C . Yomaira herrera SS et al. OLVIN. 2013; 310(1 9): 2061- 2068 (http ://ed ucati on.Qu The Point. com/f aq/FA Q164) Not Available [facility] [address] [place], [address], 11/11/2023 01:45:20 11/07/19 24 11/11/2023 LIPID PANEL , STAND OFELIA chol/HDLC ratio 2.7 (calc ) <5.0 normal Not Available [facility] [address] [address], [place], [address], 11/11/2023 01:45:20 11/07/19 24 11/11/2023 LIPID PANEL , STAND OFELIA non HDL cholesterol 97 mg/dL _(marion c) <130 normal For patie nts with diabe lei plus 1 major ASCVD risk facto r, treat ing to a non-H DL-C goal of <100 mg/dL (LDL- C of <70 mg/dL ) is consi dered a thera peuti c optio n. Not Available [facility] [address] [place], [address], 11/11/2023 01:45:20 11/07/1911/11/2023 COMPR EHENS KYLE METAB OLIC PANEL glucose 105 mg/dL 65-99 high Fasti ng refer ence inter natalia For someo ne witho ut known diabe lei, a gluco se value betwe en 100 and 125 mg/dL is consi stent with predi abete s and shoul d be confi rmed with a follo w-up test. Not Available [address], [address], 11/11/2023 01:45:21 11/07/19 24 11/11/2023 COMPR EHENS KYLE METAB OLIC PANEL urea nitrogen (BUN) 19 mg/dL 7-25 normal Not Available [address], [address], 11/11/2023 01:45:21 11/07/19 24 11/11/2023 COMPR EHENS KYLE METAB OLIC PANEL creatinine 0.75 mg/dL 0.60-1 .00 normal Not Available [address], [address], 11/11/2023 01:45:21 11/07/19 24 11/11/2023 COMPR EHENS KYLE METAB OLIC PANEL eGFR 85 mL/mi n/1.7 3m2 > or = 60 normal Not Available [address], [address], 11/11/2023 01:45:21 11/07/19 24 11/11/2023 COMPR EHENS KYLE METAB OLIC PANEL BUN/creatini ne ratio SEE NOTE: (calc ) 6-22 Not Repor bari: BUN and Creat inine are withi n refer ence range . Not Available [address], [address], 11/11/2023 01:45:21 11/07/19 24 11/11/2023 COMPR EHENS KYLE METAB OLIC PANEL sodium 136 mmol/ L 135-14 6 normal Not Available [address], [address], 11/11/2023 01:45:21 11/07/19 24 11/11/2023 COMPR EHENS KYLE METAB OLIC PANEL potassium 4.0 mmol/ L 3.5-5. 3 normal Not Available [facility] [address] [place], [address], 11/11/2023 01:45:21 11/07/19 24 11/11/2023 COMPR EHENS KYLE METAB OLIC PANEL chloride 99 mmol/ L 98-110 normal Not Available [address], [address], 11/11/2023 01:45:21 11/07/19 24 11/11/2023 COMPR EHENS KYLE METAB OLIC PANEL carbon dioxide 26 mmol/ L 20-32 normal Not Available [address], [address], 11/11/2023 01:45:21 11/07/19 24 11/11/2023 COMPR EHENS KYLE METAB OLIC PANEL calcium 8.9 mg/dL 8.6-10 .4 normal Not Available [address], [address], 11/11/2023 01:45:21 11/07/19 24 11/11/2023 COMPR EHENS KYLE METAB OLIC PANEL protein, total 6.4 g/dL 6.1-8. 1 normal Not Available [address], [address], 11/11/2023 01:45:21 11/07/19 24 11/11/2023 COMPR EHENS KYLE METAB OLIC PANEL albumin 4.1 g/dL 3.6-5. 1 normal Not Available [address] [place], [address], 11/11/2023 01:45:21 11/07/19 24 11/11/2023 COMPR EHENS KYLE METAB OLIC PANEL globulin 2.3 g/dL_ (calc ) 1.9-3. 7 normal Not Available [address], [address], 11/11/2023 01:45:21 11/07/19 24 11/11/2023 COMPR EHENS KYLE METAB OLIC PANEL albumin/glob ulin ratio 1.8 (calc ) 1.0-2. 5 normal Not Available [address], [address], 11/11/2023 01:45:21 11/07/19 24 11/11/2023 COMPR EHENS KYLE METAB OLIC PANEL bilirubin, total 0.4 mg/dL 0.2-1. 2 normal Not Available [address], [address], 11/11/2023 01:45:21 11/07/19 24 11/11/2023 COMPR EHENS KYLE METAB OLIC PANEL alkaline phosphatase 53 U/L 37-153 normal Not Available [address], [address], 11/11/2023 01:45:21 11/07/19 24 11/11/2023 COMPR EHENS KYLE METAB OLIC PANEL AST 21 U/L 10-35 normal Not Available [address], [address], 11/11/2023 01:45:21 11/07/19 24 11/11/2023 COMPR EHENS KYLE METAB OLIC PANEL ALT 16 U/L 6-29 normal Verif ied by betty arce maegan sis. Not Available [address], [address], 11/11/2023 01:45:21 11/07/19 24 11/11/2023 CBC (INCL UDES DIFF/ PLT) white blood cell count 6.4 thous and/u L 3.8-10 .8 normal Not Available [address], [address], 11/11/2023 01:45:22 11/07/19 24 11/11/2023 CBC (INCL UDES DIFF/ PLT) red blood cell count 4.33 sam on/uL 3.80-5 .10 normal Not Available [address], [address], 11/11/2023 01:45:22 11/07/19 24 11/11/2023 CBC (INCL UDES DIFF/ PLT) hemoglobin 13.3 g/dL 11.7-1 5.5 normal Not Available [address], [address], 11/11/2023 01:45:22 11/07/19 24 11/11/2023 CBC (INCL UDES DIFF/ PLT) hematocrit 38.7 % 35.0-4 5.0 normal Not Available [address], [address], 11/11/2023 01:45:22 11/07/19 24 11/11/2023 CBC (INCL UDES DIFF/ PLT) MCV 89.4 fL 80.0-1 00.0 normal Not Available [address], [address], 11/11/2023 01:45:22 11/07/19 24 11/11/2023 CBC (INCL UDES DIFF/ PLT) MCH 30.7 pg 27.0-3 3.0 normal Not Available [address], [address], 11/11/2023 01:45:22 11/07/19 24 11/11/2023 CBC (INCL UDES DIFF/ PLT) MCHC 34.4 g/dL 32.0-3 6.0 normal Not Available [address], [address], 11/11/2023 01:45:22 11/07/19 24 11/11/2023 CBC (INCL UDES DIFF/ PLT) RDW 12.3 % 11.0-1 5.0 normal Not Available [address] [place], [address], 11/11/2023 01:45:22 11/07/19 24 11/11/2023 CBC (INCL UDES DIFF/ PLT) platelet count 253 thous and/u L 140-40 0 normal Not Available [address], [address], 11/11/2023 01:45:22 11/07/19 24 11/11/2023 CBC (INCL UDES DIFF/ PLT) MPV 11.4 fL 7.5-12 .5 normal Not Available [address], [address], 11/11/2023 01:45:22 11/07/19 24 11/11/2023 CBC (INCL UDES DIFF/ PLT) absolute neutrophils 3827 cells /uL 1500-7 800 normal Not Available [address], [address], 11/11/2023 01:45:22 11/07/19 24 11/11/2023 CBC (INCL UDES DIFF/ PLT) absolute lymphocytes 1434 cells /uL 850-39 00 normal Not Available [address], [address], 11/11/2023 01:45:22 11/07/19 24 11/11/2023 CBC (INCL UDES DIFF/ PLT) absolute monocytes 474 cells /uL 200-95 0 normal Not Available [address], [address], 11/11/2023 01:45:22 11/07/19 24 11/11/2023 CBC (INCL UDES DIFF/ PLT) absolute eosinophils 563 cells /uL 15-500 high Not Available [address], [address], 11/11/2023 01:45:22 11/07/19 24 11/11/2023 CBC (INCL UDES DIFF/ PLT) absolute basophils 102 cells /uL 0-200 normal Not Available [address], [address], 11/11/2023 01:45:22 11/07/19 24 11/11/2023 CBC (INCL UDES DIFF/ PLT) neutrophils 59.8 % normal Not Available [address], [address], 11/11/2023 01:45:22 11/07/19 24 11/11/2023 CBC (INCL UDES DIFF/ PLT) lymphocytes 22.4 % normal Not Available [address], [address], 11/11/2023 01:45:22 11/07/19 24 11/11/2023 CBC (INCL UDES DIFF/ PLT) monocytes 7.4 % normal Not Available [address], [address], 11/11/2023 01:45:22 11/07/19 24 11/11/2023 CBC (INCL UDES DIFF/ PLT) eosinophils 8.8 % normal Not Available [address], [address], 11/11/2023 01:45:22 11/07/19 24 11/11/2023 CBC (INCL UDES DIFF/ PLT) basophils 1.6 % normal Not Available [address], [address], 11/11/2023 01:45:22 11/07/19 24 11/11/2023 T4, FREE T4, free 1.2 NG/dL 0.8-1. 8 normal Not Available [address], [address], 11/11/2023 01:45:23 11/07/19 24 11/11/2023 TSH TSH 6.33 mIU/L 0.40-4 .50 high Not Available [facility] [address] [place], [address], 11/11/2023 01:45:23 11/07/19 24 11/11/2023 VITAM IN D,25- OH,TO KEYLA,I A vitamin D,25-oh,tota l,ia 35 NG/mL 30-100 normal Vitam in D Statu s 25-OH Vitam in D: Defic iency : <20 ng/mL Insuf ficie ncy: 20 - 29 ng/mL Optim al: > or = 30 ng/mL For 25-OH Vitam in D testi ng on patie nts on D2-leon pplem entat ion and patie nts for whom quant itati on of D2 and D3 fract ions is requi red, the Quest Assur eD(TM ) 25-OH VIT D, (D2,D 3), LC/MS /MS is recom erlin d: order code 14197 (ori ents >2yrs ). See Note 1 Note 1 For addit ional infor clif fam refer to http: //stuart Mello stDia gnost ics.c om/fa q/FAQ 199 (This link is being provi ded for infor kip garrett/ francisco bolaños purpo ses only. ) Not Available [facility] [address] , [place], [address], 11/11/2023 01:45:24 10/21/19 24 10/21/2023 MAMMO , scree doris, digit al, bilat eral No observ ation record ed. [email or web address], [place], [address], 10/21/2023 16:38:43 10/25/19 24 XR, lumbo sacra l spine , 4 or more view [facility] [address], [facility] [place] [address] Patien t Name: GLENDA MILLER Access ion #: [id number] Sex: F : 1950 3 Dictat ed By: Owen Jarvis Attend ing Physic dinesh: FRANCESCA CRUZ CE Orderi ng Physic dinesh: FRANCESCA CRUZ CE Exam Date: 2023 14:58 PM Exam Name: XR L SPINE 4V+ Admitt ing Diagno sis(es ): INDICA TION: pain COMPAR DIANN: None TECHNI QUE: 4 views of the lumbar spine were obtain ed. FINDIN GS: The lumbar verteb ral alignm ent is normal . The interv ertebr al disc spaces are well-m aintai mikhail. No signif icant facet arthro senia is noted. No acute fractu re, verteb ral compre ssion deform ity or aggres sive osseou s lesion s. The parave rtebra l soft tissue s are grossl y unrema rkable . IMPRES JAVAN: No acute fractu re. Electr onical ly Signed by: Owen Jarvis at 2023 15:40: 38 PM Page 1 [email or web address] [facility] (Imaging) [address] [place], [address], 10/25/2023 17:02:17 10/25/19 24 XR, hip, unila teral , 2 or 3 view [facility] [address] [place] [address] Patien t Name: GLENDA MILLER Access ion #: [id number] Sex: F : 1950 3 Dictat ed By: Owen Jarvis Attend ing Physic dinesh: FRANCESCA CRUZ CE Orderi ng Physic dinesh: FRANCESCA CRUZ CE Exam Date: 2023 14:58 PM Exam Name: XR HIP/PE LVIS RT 2-3V Admitt ing Diagno sis(es ): pelvis and right hip radiog raph [facility] INDICA TION: pain TECHNI QUE: 3 radiog raphic views of the pelvis and right hip were obtain ed. Compar diann: none FINDIN GS: There is no eviden ce of acute fractu re or disloc ation. The visual ized joint space is well mainta ined. The alignm ent is anatom ical. Soft tissue s are unrema rkable . IMPRES JAVAN: No acute fractu re or disloc ation. Electr onical ly Signed by: Owen Jarvis at 2023 15:44: 21 PM Page 1 [facility] ([facility]) [address] [place], [address], 10/25/2023 17:02:18 12/21/19 24 12/16/2023 elect rocar diogr am No observ ation record ed. [email or web address] Not Available 2023 16:19:29 12/21/19 24 elect rocar diogr am No observ ation record ed. [email or web address] Not Available 2023 16:19:29 Result Notes None recorded. Problems Name Problem SNOMED Code Status Onset Date Resolution Date Notes Provider Name and Address Organization Details Recorded Time Administra tion of pneumococc al vaccine Active 2021 Not Available [facility] 3 14:55:54 Folliculit is 04861149 Active Not Available [facility] 3 14:55:54 Hyperchole sterolemia 95333993 Active Not Available [facility] 3 14:55:54 Insomnia 012171016 Active 2016 Not Available [facility] 3 14:55:54 Glaucoma 48496539 Active 2020 Not Available [facility] 3 14:55:54 Deficiency anemias 421791997 Active Not Available [facility] 3 14:55:54 Adult health examinatio n Active 2021 Not Available [facility] 3 14:55:54 Screening for disorder Active 2021 Not Available [facility] 3 14:55:54 Porokerato sis 243510805 Active 2020 Not Available [facility] 3 14:55:54 Hypothyroi dism 74644622 Active Not Available [facility] 3 14:55:54 Seasonal allergy 816810170 Active 2020 Not Available [facility] 3 14:55:54 Essential hypertensi on 68651971 Active 2017 Not Available [facility] 3 14:55:54 Osteoporos is 21275748 Active 2019 Not Available [facility] 3 14:55:55 Chronic insomnia 778762255 Active 2021 Not Available [facility] 3 14:55:55 Overactive urinary bladder 453770214 Active 2020 Not Available [facility] 3 14:55:55 Fatigue 23313032 Active 2022 Kelsie álvarez, [place] - [facility] 3 16:57:52 Obese class I 0456382270788 07 Active 2023 Zack Cruz MD [address], [address], [place], [address] , [place] [facility] 4 14:45:20 Piriformis syndrome 014561406 Active 2023 Zack Cruz MD [address], [address], [place], [address] , [place] [facility] 4 15:39:29 Vitamin D deficiency 08729310 Active 2023 Zack Cruz MD [address], [address], [place], [address] , [place] - [facility] 4 15:39:48 Low back pain 616886899 Active 2023 Kelsie álvarez, [place] - [facility] 4 15:50:02 Pain in right hip joint 7676696267419 02 Active 2023 Kelsie álvarez, [place] - [facility] 4 15:41:41 Chest pain 02765197 Active 2023 Zack Cruz MD [address], [address], [place], [address] , [place] [facility] 4 15:34:35 Low back strain 882577204 Active 2023 Kecia Garg CMA null, [facility] 4 16:50:18 COVID-19 840171098 Active 2024 Zack Cruz MD [address] [facility], [facility] [address], [place], [address] , [facility] - [facility] 5 10:15:51 Cough 23987225 Active 2024 Kecia Garg CMA null, [facility] 5 16:36:22 Problem Notes None recorded. Procedures Surgical History Date Name Laterality Status Provider Name and Address Organization Details Recorded Time 10/25/19 24 Medicare Wellness CPT Code, subsequent completed Laura Mathur RN [facility] 10/25/2023 15:08:39 10/23/19 23 Medicare Wellness CPT Code, subsequent completed Laura Mathur RN [facility] 10/22/2022 15:07:35 02/20/20 20 Most Recent Bone Density completed Not Available [facility] 10/20/2022 14:53:12 01/27/20 17 Date of Last Colonoscopy completed Not Available [facility] 10/20/2022 14:53:12 Imaging Results Imaging Date Name Status LastModified by Organization Details LastModified Time 10/21/2023 MAMMO, screening, digital, bilateral completed [address] [place] [address], [address], 10/21/2023 16:38:43 10/25/2023 XR, lumbosacral spine, 4 or more view completed [address] (Imaging) [address] [place], [address], 10/25/2023 17:02:17 10/25/2023 XR, hip, unilateral, 2 or [address] view [address] (Imaging) [address] [place], [address], 10/25/2023 17:02:18 12/16/2023 electrocardiogram completed Informa tion not available 12/21/2023 16:19:29 12/21/2023 electrocardiogram completed [email or web address] Informa tion not available 12/21/2023 16:19:29 Procedure Notes None recorded. Medical Equipment None Reported. Allergies Allergen ID Allergen Name Allergen Category Reaction Reaction Severity Criticality Documentation Date Start Date Code Code System Note Provider Name and Address Organization Details Recorded Time 98775 [facility] medicatio n other Not available Not available 10/20/2022 23873 1 RxNorm FAINT ING Not Available [facility] 14:58:17 Medications Name Sig Start Date Stop Date Status Note LastModified by Organization Details LastModified Time amoxicill in 500 mg capsule Take 1 capsule 3 times a day by oral route for 10 days. 04/18 completed Not Available Not Available Not Available buspirone 5 mg tablet Take 1 tablet twice a day by oral route. 03/01 completed Not Available Not Available Not Available ammonium lactate 12 % lotion Apply 2 applicat ions every day by topical route with meals. 02/25 completed Not Available Not Available Not Available azithromy liliana 250 mg tablet TAKE 2 TABLETS (500 MG) BY ORAL ROUTE ONCE DAILY FOR 1 DAY THEN 1 TABLET (250 MG) BY ORAL ROUTE ONCE DAILY FOR 4 DAYS 10/20 completed Not Available Not Available Not Available pravastat in 40 mg tablet TAKE 1 TABLET BY MOUTH EVERY DAY 2024 active Not Available Not Available Not Avai lable benzonata te 200 mg capsule Take 1 capsule 3 times a day by oral route. 2024 active Not Available Not Available Not Avai lable Claritin 10 mg tablet Take 1 tablet every day by oral route. active Not Available Not Available No t Available Keflex 500 mg capsule Take 1 capsule 4 times a day by oral route. active Not Available Not Available No t Available lisinopri l 20 mg tablet Take 1 tablet(s ) every day by oral route. 2023 active Not Available Not Available Not Avai lable Synthroid 125 mcg tablet TAKE 1 TABLET(S ) EVERY DAY BY ORAL ROUTE. active Not Available Not Available No t Available Synthroid 100 mcg tablet TAKE 1 TABLET BY MOUTH EVERY DAY 10/24 completed Not Available Not Available Not Available Tessalon Perles 100 mg capsule Take 1 capsule 3 times a day by oral route. active Not Available Not Available No t Available baclofen 10 mg tablet Take 1 tablet 4 times a day by oral route. 2023 active Not Available Not Available Not Avai lable pantopraz ole 40 mg tablet,de layed release TAKE 1 TABLET BY MOUTH EVERY DAY 2023 active Not Available Not Available Not Avai lable halobetas ol propionat e 0.05 % topical ointment DIRECTED APPLY TWICE DAILY TO CRACKS ON FINGER TIPS 02/02 completed Not Available Not Available Not Available lisinopri l 10 mg tablet pt cxl this rx pt has been increase d to 20 mg and a new rx has been sent in already active Not Available Not Available No t Available buspirone 7.5 mg tablet Take 1 tablet twice a day by oral route. active Not Available Not Available No t Available lisinopri l 5 mg tablet TAKE 1 TABLET BY MOUTH EVERY DAY 12/20 completed increase d to 10 mg QD Not Available Not Available Not Available zolpidem 5 mg tablet TAKE 1 TABLET BY MOUTH EVERYDAY AT BEDTIME 2023 active Not Available Not Available Not Avai lable Levaquin 500 mg tablet Take 1 tablet every 24 hours by oral route. 05/17 completed Not Available Not Available Not Available Synthroid 112 mcg tablet TAKE 1 TABLET BY MOUTH EVERY DAY 2024 active Not Available Not Available Not Avai lable ergocalci ferol (vitamin D2) 1,250 mcg (50,000 unit) capsule TAKE 1 CAPSULE BY MOUTH TWICE WEEKLY 10/24 completed Not Available Not Available Not Available zolpidem 10 mg tablet TAKE 1 TABLET BY MOUTH NIGHTLY AT BEDTIME 02/25 completed Not Available Not Available Not Available cefdinir 300 mg capsule Take 1 capsule every 12 hours by oral route. 04/18 completed Not Available Not Available Not Available dorzolami de 2 % eye drops INSTILL 1 DROP INTO BOTH EYES TWICE A DAY active Not Available Not Available No t Available Bactrim DS 800 mg-160 mg tablet Take 1 tablet every 12 hours by oral route for 5 days. 10/27 completed Not Available Not Available Not Available escitalop darien 10 mg tablet TAKE 1&1/2 TABLET BY MOUTH EVERY DAY 02/25 completed Not Available Not Available Not Available escitalop darien 20 mg tablet TAKE 1 TABLET BY MOUTH EVERY DAY active Not Available Not Available No t Available Reclast 5 mg/100 mL intraveno us piggyback once yearly 2013 active Not Available Not Available Not Avai lable Prolia 60 mg/mL subcutane ous syringe Inject 1 mL by subcutan eous route. 2019 active Not Available Not Available Not Avai lable Lumigan 0.01 % eye drops INSTILL 1 DROP INTO BOTH EYES EVERY NIGHT DIRECTED active Not Available Not Available No t Available Myrbetriq 25 mg tablet,ex tended release TAKE 1 TABLET BY MOUTH EVERY DAY active Not Available Not Available No t Available Osphena 60 mg tablet Take 1 tablet every day by oral route. 02/02 completed Not Available Not Available Not Available Flonase Allergy Relief 10/22 completed Not Available Not Available Not Available Imvexxy Starter Pack 10 mcg vaginal insert, dose pack INSERT 1 VAGINAL INSERT (10 MCG) BY VAGINAL ROUTE ONCE DAILY FOR 2 WEEKS THEN 1 INSERT (10 MCG) TWICE WEEKLY FOR DURATION OF USE 02/02 completed Not Available Not Available Not Available Imvexxy Maintenan ce Pack 10 mcg vaginal insert Insert 1 vaginal insert twice a week by vaginal route. active Not Available Not Available No t Available Flowflex COVID-19 Antigen Home Test kit USE DIRECTED 02/25 completed Not Available Not Available Not Available Paxlovid 300 mg (150 mg x 2)-100 mg tablets in a dose pack Take two of the 150mg tablets and one of the 100mg tablets twice daily for five days 2024 active Not Available Not Available Not Avai lable Vitals Date Recorded Body height Body mass index (BMI) Body weight Heart rate Body temperature Oxygen saturation Oxygen saturation in Arterial blood by Pulse oximetry Systolic blood pressure Diastolic blood pressure Provider Name and Address Organization Details Last Updated DateTime 3 161.29 cm 29.4 kg/m2 00141.3 1 g 74 /min 97 [degF] 97 % 97 % 142 mm[Hg] 74 mm[Hg] Kelsie OSEGUERA - [facility] [employer] [facility] 3 15:04:20 Date Recorded Body height Body weight Body temperature Heart rate Oxygen saturation Oxygen saturation in Arterial blood by Pulse oximetry Systolic blood pressure Diastolic blood pressure Provider Name and Address Organization Details Last Updated DateTime 4 161.29 cm 44088 g 97.1 [degF] 72 /min 97 % 97 % 126 mm[Hg] 74 mm[Hg] Geeta Menendez MA [facility] 4 14:35:50 Date Recorded Body height Body mass index (BMI) Body weight Heart rate Body temperature Oxygen saturation Oxygen saturation in Arterial blood by Pulse oximetry Systolic blood pressure Diastolic blood pressure Provider Name and Address Organization Details Last Updated DateTime 4 161.29 cm 26.9 kg/m2 82304.2 2 g 63 /min 97 [degF] 95 % 95 % 140 mm[Hg] 90 mm[Hg] [facility] [employer] [facility] 4 15:07:03 Date Recorded Pain severity - 0-10 verbal numeric rating [Score] - Reported Provider Name and Address Organization Details Last Updated DateTime 10/25/2023 0 Laura Mathur, [facility]ASSIDY [facility] [employer] [facility] 10/25/2023 15:09:00 Date Recorded Body height Body mass index (BMI) Body weight Systolic blood pressure Diastolic blood pressure Provider Name and Address Organization Details Last Updated DateTime 12/16/2023 161.29 cm 26.9 kg/m2 39902.22 g 140 mm[Hg] 70 mm[Hg] Kelsiezion Starrandrew [facility] 4 15:26:51 Date Recorded Heart rate Provider Name an d Address Organization Details Last Updated DateTime 12/16/2023 80 /min Zack Cruz MD [address] [facility], [facility] [address], [place], [address], [facility] 12/16/2023 15:35:02 Date Recorded Body height Body mass index (BMI) Body weight Heart rate Body temperature Oxygen saturation Oxygen saturation in Arterial blood by Pulse oximetry Systolic blood pressure Diastolic blood pressure Provider Name and Address Organization Details Last Updated DateTime 4 161.29 cm 32.8 kg/m2 00895.3 7 g 74 /min 97.8 [degF] 97 % 97 % 126 mm[Hg] 82 mm[Hg] JOYCE Maynard [place] - [facility] 4 15:28:58 Social History Question Answer Notes LastModified by Organizat ion Details LastModified Time Tobacco Smoking Status Never Smoker Not Available [facility] 10/20/2022 14:53:06 Do You Have An Advance Directive? Yes [email or web address] Information not available 10/25/2023 What Is Your Level Of Alcohol Consumption? Occasional MIGRATION.15271 [id number] Information not available 10/20/2022 Are You Blind Or Do You Have Difficulty Seeing? No MIGRATION.69165 19574 Information not available 10/20/2022 In The 14 Days Before Symptom Onset, Have You Had Close Contact With A Laboratory-confir med COVID-19 While That Case Was Ill? No MIGRATION.52445 55045 Information not available 10/20/2022 In The 14 Days Before Symptom Onset, Have You Had Close Contact With A Person Who Is Under Investigation For COVID-19 While That Person Was Ill? No MIGRATION.09725 36723 Information not available 10/20/2022 Are You Deaf Or Do You Have Serious Difficulty Hearing? Yes [email or web address] Information not available 10/22/2022 What Type Of Diet Are You Following? REGULAR MIGRATION.71002 42278 Information not available 10/20/2022 Have There Been Any Changes To Your Family Or Social Situation? Yes [email or web address] Information no t available 10/25/2023 What Is The Fluoride Status Of Your Home? Unknown [email or web address] Information not available 10/22/2022 Are There Any Guns Present In Your Home? Yes MIGRATION.33074 73869 Information not available 10/20/2022 Do You Use Insect Repellent Routinely? Yes MIGRATION.71075 86281 Information not available 10/20/2022 Where Do You Live? [place]House MIGRATION.57499 88747 Information not available 10/20/2022 Guns Present In The Home? Yes [email or web address] Information not available 10/25/2023 Are You Able To Care For Yourself? Yes [email or web address] Information not available 10/25/2023 Are You Blind Or Do Yo Have Difficulty Seeing? No [email or web address] Information not available 10/25/2023 Are You Deaf Or Do You Have Serious Difficulty Hearing? Yes [email or web address] Information not available 10/25/2023 Live Alone Of With Others? With Others [email or web address] Information not available 10/22/2022 Do You Have A Medical Power Of Bone Cooking Operator? Yes Information not available 10/25/2023 What Was The Date Of Your Most Recent Tobacco Screening? 10/25/2023 [email or web address] Information not available 10/25/2023 Do You Have Any Pets? Yes MIGRATION.25854 65843 Information not available 10/20/2022 What Is Your Relationship Status? MIGRATION.65797 79532 Information not available 10/20/2022 Do You Use Your Seat Belt Or Car Seat Routinely? Yes MIGRATION.49175 53590 Information not available 10/20/2022 Do You Have Smoke And Carbon Monoxide Detectors In Your Home? Yes MIGRATION.87192 94960 Information not available 10/20/2022 Are You Passively Exposed To Smoke? No MIGRATION.87548 72965 Information not available 10/20/2022 Are There Any Smokers In Your House? No MIGRATION.87310 22931 Information not available 10/20/2022 Do You Use Sunscreen Routinely? Yes MIGRATION.59073 07497 Information not available 10/20/2022 Have You Recently Traveled Abroad? No MIGRATION.96244 35440 Information not available 10/20/2022 Do You Have Any Dietary Restrictions? No MIGRATION.41449 69617 Information not available 10/20/2022 Sex: Unknown Functional Status Question Answer Note LastModified by Organizat ion Details LastModified Time Do you have difficulty walking or climbing stairs? No MIGRATION.[id number] 026 Information not available 10/20/2022 Do you have transportation difficulties? No MIGRATION.0353934 026 Information not available 10/20/2022 Are you able to walk? YESWOREST MIGRATION.3232844 026 Information not available 10/20/2022 Do you have difficulty doing errands alone? No MIGRATION.8919116 026 Information not available 10/20/2022 Are you able to care for yourself? Yes MIGRATION.[id number] 026 Information not available 10/20/2022 Do you have difficulty dressing or bathing? No MIGRATION.8109321 026 Information not available 10/20/2022 What is your exercise level? Occasional MIGRATION.[id number] 026 Information not available 10/20/2022 Mental Status Question Answer Note LastModified by Organizat ion Details LastModified Time Do you have difficulty concentrating, remembering or making decisions? No MIGRATION.[id number] 6 Information not available 10/20/2022 Family History Relationship Description Onset Age of this Age Resolved Age Notes LastModified by Organization Details LastModified Time Father Heart disease [id number].[id number] Not available 10/20/2022 14:53:14 Maternal Grandmother Osteoporosis MIGRATION.0 30 [id number] Not available 10/20/2022 14:53:14 Notes:Mother 95 yea rs old Father 58 years old 1 Sisters from cancer Mother Hx Dementia Father Hx Parkinsonism, ASHD Sister Hx Seizures (1) and ovarian CA Medical History Condition Response NERVE DISEASE N BLINDNESS N RHEUMATIC FEVER N KIDNEY STONES N BLADDER PROBLEMS N MRSA N OTHER # 1 N POLIO N LUNG DISEASE/DISORDER N HISTORY OF DRUG ABUSE N COPD N RADIATION / CHEMOTHERAPY N Other # 2 N BLOOD DISEASES N EAR OR HEARING PROBLEMS N MUMPS N SHINGLES N BOWEL PROBLEMS N DEPRESSION (INCLUDING POST ) N STROKE/TIA N ULCERS N BENIGN PROSTATIC HYPERPLASIA N MEASLES N HYPOTENSION N MYOCARDIAL INFARCTION N OBESITY N GERD/NAUSEA N ANEURYSM N URINARY/BLADDER/KIDNEY PROBLEMS N CORONARY ARTERY DISEASE (CAD) N ADDICTION CONCERNS N ENDOMETRIOSIS N Impotence N USE OF BLOOD THINNERS N SKIN PROBLEMS N GASTROINTESTINAL DISORDER N PERIPHERAL VASCULAR DISEASE N MUSCLE,JOINT OR BONE PROBLEMS N GASTROINTESTINAL BLEEDING N BLOOD CLOTS N ASTHMA N CATARACTS N ERECTILE DYSFUNCTION N VARICOSITIES N GI PROBLEMS N Low Testosterone N INFERTILITY N AIDS/HIV N CHEMOTHERAPY / RADIATION N LIVER DISEASE N MALE HYPOGONADISM N HYPERTENSION N Deficiency N TOURETTE'S N ANXIETY DISORDER N BLOOD TRANSFUSION N ANEMIA/BLOOD DISORDER N CHRONIC EAR INFECTIONS N BRONCHITIS N OSTEOARTHRITIS Y TUBERCULOSIS N GLAUCOMA N FOOT PROBLEM N DIVERTICULITIS N SLEEP APNEA N CHICKENPOX N INFECTIOUS DISEASE N PROSTATE N HEART ARRHYTHMIA N INSOMNIA N HIGH CHOLESTEROL / HYPERLIPIDEMIA Y EYE PROBLEMS N HYPERTHYROIDISM N EDEMA N CHRONIC PAIN SYNDROME N HYPOTHYROIDISM Y CONSTIPATION N CAROTID BLOCKAGE N BACK / NECK PROBLEMS N HAVE YOU BEEN HOSPITALIZED OR SEEN IN [facility] IN THE PAST YEAR ? N ATHEROSCLEROSIS N BREAST PROBLEMS N DIALYSIS N ECZEMA N OSTEOPOROSIS N ARTHRITIS N NO SIGNIFICANT PAST MEDICAL HISTORY N APPENDICITIS N DIABETES, TYPE N BAD TEETH N ENT N HEARTBURN / REFLUX N AUTISM SPECTRUM DISORDER (ASD) N HEPATITIS / LIVER DISEASE N GOUT N SLEEP DISORDER N ALZHEIMER'S DISEASE N Brain Problems N HERPES N DEMENTIA N HEADACHES/MIGRAINES N SEIZURES/EPILEPSY N VASCULAR DISEASE N PACEMAKER N Blood Disorder N DIZZINESS N HEART DISEASE/HEART PROBLEMS N KIDNEY DISEASE N MULTIPLE SCLEROSIS N CARDIAC ARRHYTHMIA N CANCER: SPECIFY N ATRIAL FIBRILLATION N Gall Stones N PULMONARY EMBOLISM N AUTOIMMUNE DISEASE N Gynecological History Statement/Question Response Date of Last Mammogram 02/25/2021 Date of Last Colonoscopy 01/26/2017 Most Recent Bone Density 02/20/2020 Obstetrics History GPAL:G 0 P 0 0 0 0 Immunizations Vaccine Type Date Status Note Provider Nam e and Address Organization Details Recorded Time influenza, unspecified formulation 2 completed Kelsie álvarez, [facility] [employer] 10/22/2022 15:03:51 Influenza, high-dose, trivalent, PF 4 completed JOYCE Maynard, [facility] [employer] [facility] 06/07/2024 15:59:35 Influenza, high-dose, trivalent, PF 3 completed Not Available [facility] 10/20/2022 14:58:11 Influenza, split virus, quadrivalent, preservative 1 completed Not Available [facility] 10/20/2022 14:58:11 SARS-COV-2 (COVID-19) vaccine, UNSPECIFIED 1 completed Not Available [facility] 10/20/2022 14:58:11 SARS-COV-2 (COVID-19) vaccine, UNSPECIFIED 1 completed Not Available [facility] 10/20/2022 14:58:11 SARS-COV-2 (COVID-19) vaccine, UNSPECIFIED 1 completed Not Available [facility] 10/20/2022 14:58:11 Influenza, high-dose, trivalent, PF 7 completed Not Available [facility] 10/20/2022 14:58:11 pneumococcal polysaccharide PPV23 2 completed Not Available [facility] 10/20/2022 14:58:11 Influenza, high-dose, quadrivalent, PF 0 completed Not Available [facility] 10/20/2022 14:58:11 Influenza, high-dose, trivalent, PF 8 completed Not Available [facility] 10/20/2022 14:58:11 Pneumococcal conjugate PCV 13 0 completed Not Available [facility] 10/20/2022 14:58:12 Influenza, split virus, trivalent, preservative 5 completed Not Available [facility] 10/20/2022 14:58:12 Past Encounters Encounter ID Performer Location Encounter Start Date Encounter Closed Date Diagnosis/Indication Diagnosis SNOMED-CT Code Diagnosis ICD10 Code Diagnosis Note [id number] _ARISTEO_ IGRATION_ DEFAULT_1 _1 , 02/02/2021 00:00:00 02/18/2021 10:04:17 [id number] [facility] Podiatry [address], [address] [address] 02/26/2021 00:00:00 02/27/2021 13:22:14 [id number] [facility] Internal Med [place] [facility] [address] [place] [address] 04/21/2021 00:00:00 04/21/2021 15:00:31 [id number] [facility] Internal Med [place] [facility] [place] [address] [address] 10/20/2021 00:00:00 10/20/2021 14:52:51 [id number] [facility] Internal Med [place] [facility] [place] [place] [address] [address] 04/23/2022 00:00:00 04/23/2022 15:44:31 [id number] Zack Cruz MD [facility] Internal Med [place] [address] [place] [address] [address] 10/22/2022 14:47:29 10/22/2022 16:00:38 Adult health examination 940404508 Z00.00 Screening for disorder 412021874 Z13.9 Essential hypertension 00091997 I10 Hypercholesterolemia 136 34403 E78.00 Osteoporosis 53726361 M8 1.0 Hypothyroidism 16404436 E03.9 [id number] Zack Cruz MD [facility] Internal [place] [address] [place] [address] [place] [address] 02/25/2023 14:39:11 02/25/2023 15:35:12 Essential hypertension 19553299 I10 Hypercholesterolemia 136 51891 E78.00 Hypothyroidism 17246131 E03.9 Osteoporosis 76627194 M8 1.0 [id number] Zack Cruz MD [facility] Internal Med [place] [address] [place] [address] [place] [address] 08/26/2023 14:22:50 08/26/2023 15:24:15 Essential hypertension 42353984 I10 Hypercholesterolemia 136 39141 E78.00 Overactive urinary bladder 336688607 N32.81 Hypothyroidism 75230098 E03.9 Osteoporosis 98394056 M8 1.0 Obese class I [id number] 18851 E66.9 [id number] Zack Cruz MD [facility] Internal Med [place] [address] [place] [address] [place] [address] 10/25/2023 15:06:20 10/26/2023 08:42:42 Adult health examination 100631048 Z00.00 Screening for disorder 289436258 Z13.9 Essential hypertension 26533507 I10 Hypercholesterolemia 136 25373 E78.00 Piriformis syndrome 1291 73662 G57.01 Vitamin D deficiency 347 42350 E55.9 [id number] Zack Cruz MD [facility] Internal Med [place] [address] [place] [address] [place] [address] 12/16/2023 14:59:58 12/16/2023 15:42:19 Essential hypertension 57901566 I10 Hypercholesterolemia 136 94935 E78.00 Hypothyroidism 85408720 E03.9 Chest pain 94974487 R07. 9 [id number] Zack Cruz MD [facility] Internal Med [place] [address] [place] [address] [place] [address] 03/01/2024 15:12:33 03/01/2024 16:02:36 Essential hypertension 57720227 I10 Hypercholesterolemia 136 74971 E78.00 Hypothyroidism 20819595 E03.9 Osteoporosis 99715153 M8 1.0 Obese class I [id number] 94683 E66.9 Health Concerns Section Related Observation LastModified by Organization Detai ls LastModified Time None Recorded Concern Status LastModified by Organization Details LastModified Time None Recorded Advance Directives Directive Y: Payers Encounter Date Sequence Insurance Name Policy Number Policy Avalos Covered Member ID Avalos Member ID Guarantor Name 02/25/2023 1 [employer] (MEDICARE REPLACEMENT PPO) [id number] Glenda Barba Angela [id number] Glenda Barba Angela 08/26/2023 1 [employer] (MEDICARE REPLACEMENT PPO) [id number] Glenda rFeda Angela [id number] Glenda Freda Angela 10/25/2023 1 [employer] (MEDICARE REPLACEMENT PPO) [id number] Glenda Freda Angela [id number] Glenda Freda Angela 12/16/2023 1 [employer] (MEDICARE REPLACEMENT PPO) [id number] Glenda Freda Angela [id number] Glenda Freda Angela 03/01/2024 1 [employer] (MEDICARE REPLACEMENT PPO) [id number] Glenda Freda Angela [id number] Glenda Freda Angela Notes Date Note Type Note Provider Name and Address Organization Details Recorded Time 3 text/html Patient Name: Glenda MillerDate Of Service: Tuesday ( 02.25.2023 ): 1950 Age: 72 There has been approximately a 9.5 lb weight loss since 10/22/2022. This represents approximately a 5.3% change in weight. Weight change attributable to lifestyle changes. Vital Signs:Blood Pressure: Sitting Rt. Arm 142/74Pulse: Sitting 74 /min and RegularRespirations: 12Height 63.5 in or 1.6 mWeight 168.5 lb or 76.4 kgBMI 29.4Temperature: 97 F or 36.1 CPulse Oximetry: 97 % at rest on no oxygen Chief Complaint: Addressed in HPI Problems or conditions discussed in the HPI were the only ones reviewed during the encounter.Only social and family history addressed in the HPI were reviewed during this encounter. Attendant(s): None Constitutional and Systemic Symptoms: none Medication Reconciliation: from medication list. History of Present Illness #1. Essential Hypertension: Stage: Stage I Interval Neurological Complaints no headaches, dizziness, weakness, visual changes, ataxia, aphasia and apraxia. No shortness of breath, orthopnea or cardiovascular symptoms. No other symptoms related to end organ damage. Pressure has been under excellent control. Currently normal. No other end organ symptoms or findings. Therapy reviewed regarding management of hypertension and includes salt restriction and Lisinopril. #2. Type II Hypercholesterolaemia: Currently taking medication and tolerating well. No interval complaints of any muscle pain or arthralgia. No significant liver changes with medications. Last lipid panel: fair control. Therapy reviewed regarding treatment of cholesterol management and include diet and Pravachol. #3. Hx of hypothyroidism currently stable. Heat intolerance: no Fatigue: no Weight gain: no Difficulty concentrating: no Muscle Symptoms: none Skin Texture: normal Skin Color: normal Currently taking synthroid. #4. osteoporosis. No new complaints of any additional back,hip or other musculoskeletal complaints related to the osteoporosis. No hx of any recent trauma. Currently taking OsCal-D and Prolia. Has showed osteoporosis. The FRAX Score for Hip Fracture is NA hx osteoporosis FRAX score for major fractures NA hx of osteoporosisMedication List Reviewed and Reconciled 02/25/2023Synthroid 112 UG TABLET One Daily For ThyroidAmbien 5 MG (TABLET - ORAL) One Hs For SleepPravachol 40 MG (TABLET - ORAL) One Hs For CholesterolEscitalopram 10 MG TABLET 1.5 Tablets DailyLumigan 0.01% (SOLUTION/DROPS - OPHTHALMIC) One Drop Each Eye DailyImvexxy 0.01 MG (INSERT - VAGINAL) Q 2 WeeksProlia 60 MG/ ML (INJECTABLE - SUBCUTANEOUS) Q 6 MonthsLisinopril 10 MG TABLET Once DailyVaccination and Rzcpwufijrhk4354-77 Bzoqlrazx0621-27 Pneumovax 746363-57 Covid Booster Bxgcmr6270-53 Covid Yhncso4920-76 Prevnar 532543-38 Tb TestSurgical HistoryTonsillectomy, D&C, Laporoscopy, D&CPreventative Testing Confirmed by Our Oyclyhb8206/29/2022 MAMMOGRAM 3108/29/2021 DEXA SCAN06/04/2022 ALBUMIN 4.1 G/DL01/26/2017 COLONOSCOPY (10 YEARS) 01/26/2027Social HistorySOCIAL HISTORY:Marital Status: MLiving Status: With SpouseOccupational Exposure:Does not smoke cigarettes. 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 [employer] [facility] [employer] 02/25/2023 15:29:08 4 text/html Patient Name: Glenda AdleriterDate Of Service: Tuesday ( 08.26.2023 ): 1950 Age: 72 There has been approximately a 15.5 lb weight gain since 02/25/2023. This represents approximately a 9.2% change in weight. Weight change attributable to lifestyle changes. Vital Signs:Blood Pressure: Sitting Rt. Arm 126/74Pulse: Sitting 72 /min and RegularRespiratory Rate: 12Height 63.5 in or 1.6 mWeight 184 lb or 83.5 kgBMI 32.1Temperature: 97.1 F or 36.2 CPulse Oximetry: 87 % at rest on no oxygen Chief Complaint: Addressed in HPI Problems or conditions discussed in the HPI were the only ones reviewed during the encounter.Only social and family history addressed in the HPI were reviewed during this encounter. Attendant(s): HusbandConstitutional and Systemic Symptoms:none Medication Reconciliation: from medication list. History of Present Illness #1. Essential Hypertension: Stage: Stage I Interval Neurological Complaints no headaches, dizziness, weakness, visual changes, ataxia, aphasia and apraxia. No shortness of breath, orthopnea or cardiovascular symptoms. No other symptoms related to end organ damage. Pressure has been under excellent control. Currently normal. No other end organ symptoms or findings. Therapy reviewed regarding management of hypertension and includes salt restriction. #2. Type II Hypercholesterolaemia: Currently taking medication and tolerating well. No interval complaints of any muscle pain or arthralgia. No significant liver changes with medications. Last lipid panel: fair control. Therapy reviewed regarding treatment of cholesterol management and include diet and Pravachol. #3. Hx of hypothyroidism currently stable. Heat intolerance: no Fatigue: no Weight gain: no Difficulty concentrating: no Muscle Symptoms: none Skin Texture: normal Skin Color: normal Currently taking synthroid. #4. Overactive Bladder Syndrome: Hx of OAB. Currently taking Myrbetriq. Has improved #5. osteoporosis. No new complaints of any additional back,hip or other musculoskeletal complaints related to the osteoporosis. No hx of any recent trauma. Currently taking OsCal-D and Prolia. Has has had a recent DEXA scan done within the last year. The FRAX Score for Hip Fracture is NA hx osteoporosis FRAX score for major fractures NA hx of osteoporosis #6. Hx of obesity. Currently Class 1 Obesity BMI 30-34.99. Has tried numerous dietary support and supplements with no benefit. Instructed on the health consequences of the obese status particularly cancer - diabetes and heart disease. Discussed new modalities of weight loss including GLP-1 medications that are used to treat diabetes. Potential candidate for bariatric surgery: No. Wishes to be evaluated by Dietary: Yes.Medication List Reviewed and Reconciled 08/26/2023Myrbetriq 25 MG TABLET, FILM COATED, EXTENDED RELEASE One DailyAmbien 5 MG (TABLET - ORAL) One Hs For SleepPravachol 40 MG (TABLET - ORAL) One Hs For CholesterolEscitalopram 10 MG TABLET 1.5 Tablets DailyLumigan 0.01% (SOLUTION/DROPS - OPHTHALMIC) One Drop Each Eye DailyImvexxy 0.01 MG (INSERT - VAGINAL) Q 2 WeeksProlia 60 MG/ ML (INJECTABLE - SUBCUTANEOUS) Q 6 MonthsLisinopril 10 MG TABLET Once DailyDorzolamide Hcl 20 MG/ML SOLUTION/ DROPS As DirectedVaccination and Ggqvzvjirolv0031-67 Ekiuppiis4693-31 Ljsgljowl7546-31 Covid Booster Tmyfof7096-38 Covid Htpaoi0880-52 Prevnar 13Surgical HistoryTonsillectomy, D&C, Laporoscopy, D&CPreventative Testing Confirmed by Our Lnbywjf0906/14/2023 ALBUMIN 3.9 G/DL N108/29/2021 MAMMOGRAM DEXA SCAN01/26/2017 COLONOSCOPY (10 YEARS) 01/26/2027Social HistorySOCIAL HISTORY:Marital Status: MLiving Status: With SpouseOccupational Exposure:Does not smoke cigarettes. 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 Arm 140/90Pulse: Sitting 63 /min and RegularRespiratory Rate: 12Height 63.5 in or 1.6 mWeight 154 lb or 69.9 kgBMI 26.8Temperature: 97 F or 36.1 CPulse Oximetry: 95 % at rest on no oxygen Chief Complaint: Addressed in HPI Problems or conditions discussed in the HPI were the only ones reviewed during the encounter.Only social and family history addressed in the HPI were reviewed during this encounter. A significant, separate E/M service was performed to evaluate the current and new problems. Attendant(s): NoneConstitutional and Systemic Symptoms:none Medication Reconciliation: from medication list. History of Present Illness Reviewed the findings of the preventative health visit. Addressed all areas with the patient, patient's family or caregivers. Preventative examinations and testing immunizations - vaccinations, colonic neoplasm screening and mammograms all reviewed and ordered where patient was amenable to the recommendations. Cognitive function was normal. Depression addressed and where necessary medications were adjusted or instituted. End of life and living will briefly discussed with patient and where these can be filled out and legally executed. Other blood and imaging studies were ordered if considered necessary. Other recommendations may be found in the encounter note. #1. Essential Hypertension: Stage: Stage I Interval Neurological Complaints no headaches, dizziness, weakness, visual changes, ataxia, aphasia and apraxia. No shortness of breath, orthopnea or cardiovascular symptoms. No other symptoms related to end organ damage. Pressure has been under excellent control. Currently normal. No other end organ symptoms or findings. Therapy reviewed regarding management of hypertension and includes salt restriction and Lisinopril. #2. Type II Hypercholesterolaemia: Currently taking medication and tolerating well. No interval complaints of any muscle pain or arthralgia. No significant liver changes with medications. Last lipid panel: fair control. Therapy reviewed regarding treatment of cholesterol management and include diet and Pravachol. #3. Complaining of pain and discomfort in the right sacroiliac and gluteal area. Some radiation into the upper thigh posteriorly. Denies any numbness, tingling weakness. Aggravated by sitting as well as walking to some extent. No history of any associated actual weakness. May represent either sciatica of some form or possible piriformis type of irritation.: Active Medication ListMyrbetriq 25 MG TABLET, FILM COATED, EXTENDED RELEASE One DailyAmbien 5 MG (TABLET - ORAL) One Hs For SleepPravachol 40 MG (TABLET - ORAL) One Hs For CholesterolEscitalopram 20 MG TABLET One DailyLumigan 0.01% (SOLUTION/DROPS - OPHTHALMIC) One Drop Each Eye DailySynthroid 112 UG TABLET Once DailyClaritin 10 MG TABLET Once DailyImvexxy 0.01 MG (INSERT - VAGINAL) Q 2 WeeksProlia 60 MG/ ML (INJECTABLE - SUBCUTANEOUS) Q 6 MonthsLisinopril 10 MG TABLET Once DailyDorzolamide Hcl 20 MG/ML SOLUTION/ DROPS As Directed Vaccination and Uypzdkmlzcuq9804-69 Iswczqoea1652-19 Zaziszsle5804-86 Covid Booster Yjzkze8142-74 Covid Fowjze3302-22 Prevnar 13 Surgical Peotqdv3370-37 Tkjkpdryhhifp8292-84 D&O5636-96 Qrnqmhqtlxg8302-38 D&C Preventative Jikqeqm0210/21/2023 MAMMOGRAM 51 ALBUMIN 3.9 G/DL N108/29/2021 DEXA SCAN01/26/2017 COLONOSCOPY (10 YEARS) 01/26/2027 Social HistorySOCIAL HISTORY:Marital Status: MLiving Status: With SpouseOccupational Exposure:Does not smoke cigarettes. 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 Arm 140/70Pulse: Sitting 80 /min and RegularRespiratory Rate: 12Height 63.5 in or 1.6 mWeight 154 lb or 69.9 kgBMI 26.8 Chief Complaint: Addressed in HPI Problems or conditions discussed in the HPI were the only ones reviewed during the encounter.Only social and family history addressed in the HPI were reviewed during this encounter. Attendant(s): NoneConstitutional and Systemic Symptoms:none Medication Reconciliation: from medication list. History of Present Illness #1. Two episodes of chest pain in the last week lasting approximately 5 minutes which were non precipitated by exertion. Location midsternum with some radiation to the back. On a scale of 1-10 approximately a four. Denied any associated shortness of breath, orthopnea, PND, nausea, vomiting or any other gastrointestinal cardiovascular symptoms. No radiation of pain to the neck shoulder jaw is arms through to the back With exception to the interscapular area. Does have quite a bit of problems with eructation: #2. Essential Hypertension: Stage: Stage I Interval Neurological Complaints no headaches, dizziness, weakness, visual changes, ataxia and aphasia. No shortness of breath, orthopnea or cardiovascular symptoms. No other symptoms related to end organ damage. Pressure has been under excellent control. Currently normal. No other end organ symptoms or findings. Therapy reviewed regarding management of hypertension and includes salt restriction and Lisinopril. #3. Type II Hypercholesterolaemia: Currently taking medication and tolerating well. No interval complaints of any muscle pain or arthralgia. No significant liver changes with medications. Last lipid panel: fair control. Therapy reviewed regarding treatment of cholesterol management and include diet and Pravachol. #4. Hx of hypothyroidism currently stable. Heat intolerance: no Fatigue: no Weight gain: no Difficulty concentrating: no Muscle Symptoms: none Skin Texture: normal Skin Color: normal Currently taking synthroid. Active Medication ListMyrbetriq 25 MG TABLET, FILM COATED, EXTENDED RELEASE One DailyAmbien 5 MG (TABLET - ORAL) One Hs For SleepPravachol 40 MG (TABLET - ORAL) One Hs For CholesterolEscitalopram 20 MG TABLET One DailyLumigan 0.01% (SOLUTION/DROPS - OPHTHALMIC) One Drop Each Eye DailySynthroid 112 UG TABLET Once DailyClaritin 10 MG TABLET Once DailyImvexxy 0.01 MG (INSERT - VAGINAL) Q 2 WeeksProlia 60 MG/ ML (INJECTABLE - SUBCUTANEOUS) Q 6 MonthsLisinopril 20 MG TABLET Once DailyBuspar 5 MG One Twice A DayDorzolamide Hcl 20 MG/ML SOLUTION/ DROPS As Directed Vaccination and Pgcfplyrnwqw5130-11 Azgcbasox4337-74 Lddhjmgsn4343-78 Covid Booster Hfulpg9492-50 Covid Ifiqjn2692-15 Prevnar 13 Surgical Sganrbc6687-85 Cadociyuagxue7157-96 D&L8153-84 Pfbglrjwdlu4058-53 D&C Preventative Dypzplf6211/07/2023 ALBUMIN 4.1 G/DL N010/21/2023 MAMMOGRAM 511/03/2022 DEXA SCAN01/26/2017 COLONOSCOPY (10 YEARS) 01/26/2027 Social HistorySOCIAL HISTORY:Marital Status: MLiving Status: With SpouseOccupational Exposure:Does not smoke cigarettes. 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 Family HistoryFAMILY HISTORY:Mother 95 years oldFather 58 years old1 Sisters from cancerMother Hx: DementiaFather Hx: Parkinsonism, ASHDSister Hx: Seizures (1) and ovarian CA TEST RESULT RANGE UNITSCBC (INCLUDES DIFF/PLT) Date: 11/07/2023WHITE BLOOD CELL COUNT 6.4 3.8-10.8 THOUSAND/ULHEMOGLOBIN 13.3 11.7-15.5 G/DLHEMATOCRIT 38.7 35.0-45.0 %PLATELET COUNT 253 140-400 THOUSAND/ULCOMPREHENSIVE METABOLIC PANEL Date: 11/07/2023SODIUM 136 135-146 MMOL/LPOTASSIUM 4.0 3.5-5.3 MMOL/LGLUCOSE 105 65-99 MG/DLUREA NITROGEN (BUN) 19 7-25 MG/DLCREATININE 0.75 0.60-1.00 MG/DLEGFR 85 > OR = 60 ML/MIN/1.24S2FYKWWMED PHOSPHATASE 53 37-153 U/LAST 21 10-35 U/LALT 16 6-29 U/LLIPID PANEL, STANDARD Date: 4CHOLESTEROL, TOTAL 155 <200 MG/DLHDL CHOLESTEROL 58 > OR = 50 MG/DLTRIGLYCERIDES 53 <150 MG/DLLDL-CHOLESTEROL 84 MG/DL (CALC) Zack Cruz MD [address] [facility], [facility] [address], [place], [address], [facility] [employer] [facility] 12/16/2023 15:40:22 4 text/html Patient Name: Glenda MillerDate Of Service: February ( 03.01.2024 ): 1950 Age: 73 There has been approximately a 34 lb weight gain since 12/16/2023. This represents approximately a 22.1% change in weight. Weight change attributable to lifestyle changes. Vital Signs:Blood Pressure: Sitting Rt. Arm 126/82Pulse: Sitting 74 /min and RegularRespiratory Rate: 14Height 63.5 in or 1.6 mWeight 188 lb or 85.3 kgBMI 32.8Temperature: 97.8 F or 36.6 CPulse Oximetry: 97 % at rest on no oxygen Chief Complaint: Addressed in HPI Problems or conditions discussed in the HPI were the only ones reviewed during the encounter.Only social and family history addressed in the HPI were reviewed during this encounter. Attendant(s): NoneConstitutional and Systemic Symptoms:none Medication Reconciliation: from medication list. History of Present Illness #1. Essential Hypertension: Stage: normal Interval Neurological Complaints no headaches, dizziness, weakness, visual changes, ataxia, aphasia and apraxia. No shortness of breath, orthopnea or cardiovascular symptoms. No other symptoms related to end organ damage. Pressure has been under excellent control. Currently normal. No other end organ symptoms or findings. Therapy reviewed regarding management of hypertension and includes salt restriction and Lisinopril. #2. Type II Hypercholesterolaemia: Currently taking medication and tolerating well. No interval complaints of any muscle pain or arthralgia. No significant liver changes with medications. Last lipid panel: fair control. Therapy reviewed regarding treatment of cholesterol management and include diet and Pravachol. #3. Hx of hypothyroidism currently stable. Heat intolerance: no Fatigue: no Weight gain: no Difficulty concentrating: no Muscle Symptoms: none Skin Texture: normal Skin Color: normal Currently taking synthroid. #4. osteoporosis. No new complaints of any additional back,hip or other musculoskeletal complaints related to the osteoporosis. No hx of any recent trauma. Currently taking OsCal-D and Prolia. Has has had a recent DEXA scan done within the last year. The FRAX Score for Hip Fracture is NA hx osteoporosis FRAX score for major fractures NA hx of osteoporosis #5. Hx of obesity. Currently Class 1 Obesity BMI 30-34.99. Has tried numerous dietary support and supplements with no benefit. Instructed on the health consequences of the obese status particularly cancer - diabetes and heart disease. Discussed other modalities of weight loss GLP-1 medications that are used to treat diabetes. Potential candidate for bariatric surgery: No. Wishes to be evaluated by Dietary: No and was offered to be evaluated and instructed by rounder hand on weight loss diet. Active Medication ListMyrbetriq 25 MG TABLET, FILM COATED, EXTENDED RELEASE One DailyAmbien 5 MG (TABLET - ORAL) One Hs For SleepPravachol 40 MG (TABLET - ORAL) One Hs For CholesterolEscitalopram 20 MG TABLET One DailyLumigan 0.01% (SOLUTION/DROPS - OPHTHALMIC) One Drop Each Eye DailySynthroid 112 UG TABLET Once DailyClaritin 10 MG TABLET Once DailyImvexxy 0.01 MG (INSERT - VAGINAL) Q 2 WeeksProlia 60 MG/ ML (INJECTABLE - SUBCUTANEOUS) Q 6 MonthsLisinopril 20 MG TABLET Once DailyBuspar 7.5 MG One Twice A DayDorzolamide Hcl 20 MG/ML SOLUTION/ DROPS As DirectedPantoprazole 40 MG GRANULE, DELAYED RELEASE One Daily Vaccination and Rnugmmukppzn5761-16 Fiyqyyjga7665-07 Xuwfugxlr5900-48 Covid Booster Zdswcg0788-59 Covid Mtbbtz1004-85 Prevnar 13 Surgical Nelebpd5743-82 Ohlphnovalkxo3238-28 D&J9463-59 Tkymkmrezwg9475-81 D&C Preventative Gjefksy5611/07/2023 ALBUMIN 4.1 G/DL N010/21/2023 MAMMOGRAM 5108/29/2021 DEXA SCAN01/26/2017 COLONOSCOPY (10 YEARS) 01/26/2027 Social HistorySOCIAL HISTORY:Marital Status: MLiving Status: With SpouseOccupational Exposure:Does not smoke cigarettes. 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
--- OUTSIDE RECORDS SUMMARY | 2024-11-14 12:36 | XMS_ITS | Continuity of Care Document ---
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 Name Role Phone Ramos OD, Meir Unavailable Unavailable Procedures Procedure Date Eye Exam & Treatment Refraction Office/outpatient Visit, Est Visual Field Examination(s) Office/outpatient Visit, Est Fundus Photography W/ Report Eye Exam & Treatment Refraction Visual Field Examination(s) Office/outpatient Visit, Est Corneal Pachymetry Eye Exam & Treatment Refraction No Charge Contact Lens Check Eye Exam & Treatment Refraction Advance Directives Directive Yes / No Effective Date File Name No Information Encounters Encounter Description Practice Location Reason(s) For Visit Diagnoses Date Provider Providers Copied on Encounter [facility], [address], [place], [place], [id number], [place] tel:[phone] [facility] No Information 2-201 0 Ramos OD Meir. [address], [place], [address], [place]. tel:[phone] Office/outpat ient Visit, Est [facility], [address], [place], [place], [id number], [place] tel:[phone] [facility] No Information Vern-3 0-201 0 Krishnasamy Abhishek. [facility], [place], [address], [place]. tel:[phone] [facility], [address], [place], [place], [id number], [place] tel:[phone] [facility] No Information Mar-2 2-201 0 Krishnasamy Abhishek. [facility] [address], [place], [address], [place]. tel:[phone] Referring Provider: Abhishek jenkins, [address] [place], [place] [address], [place], [place], [facility]. tel:[phone] Office/outpat ient Visit, [facility] [address] [place] [address] [address], [place], [place], [address], [place] tel:[phone] [facility] No Information Sep-0 1-200 9 Krishnasamy Abhishek. [address] [place], [place] [address], [place], [address], [place]. tel:[phone] Referring Provider: Abhishek jenkins, [address] [place], [place] [address], [place], [address]. tel:[phone] [facility], [address], [place], [place], [address], [place] tel:[phone] [facility] No Information Vern-1 8-200 9 Ramos OD Meir. [facility] [address], [place], [address], [place]. tel:[phone] [facility], [address], [place], [place], [address], [place] tel:[phone] [facility] [place] No Information Mar-0 3-200 9 Krishnasamy Abhishek. [address] [place], [place] [address] [address], [place], [place], [facility], [place]. tel:[phone] Referring Provider: Abhishek jenkins, [address] [place], [place] [address]ate [facility] [address], [place], [place], [facility]. tel:[phone] Office/outpat ient Visit, [facility], [address] [place] [address] [address], [place], [place], [address], [place] tel:[phone] [facility] No Information Sep- 3-200 9 Domnaskofi Toscanol. [address] [place], [place] [address] [facility] [address], [place], [place], [facility], [place]. tel:[phone] Referring Provider: Abhishek jenkins, [address] [place] [address], [place], [facility]. tel:[phone] [facility], [address] [place] [address] [address], [place], [place], [address], [place] tel:[phone] [facility] No Information Jarrod-0 3-200 8 Ramos OD Meir. [address] [place], [place] [address] , [address], [place], [place], [facility], [place]. tel:[phone] [facility], [address] [place] [address] [address], [place], [place], [address], [place] tel:[phone] [facility] No Information Oct-1 9-200 8 Ramos OD Meir. [facility], [place], [place], [facility], [place]. tel:[phone] [facility], [address] [place] [address] [address], [place], [place], [address], [place] tel:[phone] [facility] No Information Vern-2 1-200 7 Ramos OD Meir. [address], [place], [place], [facility], [place]. tel:[phone] Family History Family Member Type Diagnosis Age At Onset No Information Payers Payer name Insurance type Covered green party ID Authorkatea tion(s) [facility] 09 [id number] Social History Type Description Quantity Date Captured Comments Sex Female Smoking Status No Information Chief Complaint And Reason For Visit No Information Reason For Referral Reason For Referral No Information History Of Present Illness Encounter Date Complaint History Of Prese nt Illness No Information Functional Status Date Functional Assessmen t No Information Instructions Date Instruction Additional Infor mation No Information Assessments Type Assessment Date No Information Patient Care Teams Name Effective Dates (start - stop) Status Members No Information
== END 2024-11-14 10:56 | disposition home or self-care (01) ==
LOC: ANHIMG 11:00
PROVIDERS: PCP Internal Medicine; Visit Provider Nurse Practitioner Women's Health
DX: Z78.0 Asymptomatic menopausal state (principal); M81.0 Age-related osteoporosis without current pathological fracture; M85.852 Other specified disorders of bone density and structure, left thigh; M85.851 Other specified disorders of bone density and structure, right thigh
CPT/HCPCS: 77080

== ENCOUNTER 2025-02-15 11:00 | Outpatient (CLI) | payer MEDICARE, SELFPAY ==
--- NOTE | ~2025-02-15 | MM_ITS ---
EXAMINATION: MM screening [facility] BI w ricky HISTORY: Screening mammogram TECHNIQUE: Craniocaudal and mediolateral oblique 3-D tomosynthesis images were obtained and synthetic 2-D images were generated. CAD analysis was submitted and interpreted. COMPARISON: 10/21/2023, 07/11/2022, 02/25/2021, 02/20/2020 BREAST PARENCHYMAL COMPOSITION:Not Dense. There are scattered areas of fibroglandular density. FINDINGS: No suspicious mass, calcification, or architectural distortion are identified in either yakelin ast to suggest malignancy. There has been no suspicious interval change. IMPRESSION: No mammographic evidence of malignancy. Recommend routine screening mammography in one year. BI-RADS Category 1: Negative Reviewed, dictated and finalized at location .
== END 2025-02-15 11:01 | disposition home or self-care (01) ==
LOC: ANHIMG 11:02
PROVIDERS: PCP Internal Medicine; Visit Provider Obstetrics & Gynecology Gynecology
DX: Z12.31 Encounter for screening mammogram for malignant neoplasm of breast (principal)
CPT/HCPCS: 77063; 77067

== ENCOUNTER 2025-05-17 12:48 | Outpatient (CLI) | payer MEDICARE, SELFPAY | END 2025-05-17 12:49 | disposition home or self-care (01) | LOC: ANHAUDASC 12:48 | PROVIDERS: PCP Internal Medicine; Visit Provider Otolaryngology | DX: H90.3 Sensorineural hearing loss, bilateral (principal) | CPT/HCPCS: 92557; 92567 ==